=== PATIENT | female | born 1955 | race Asian ===

== ENCOUNTER → 2018-04-26 | Outpatient (REF) | payer OTHER ==
[2018-05-02 15:19] LABS: HPV LOW VOL RFLX Negative (Negative)
== END ==
LOC: M LAB REF 13:24
DX: Z01.419 Encounter for gynecological examination (general) (routine) without abnormal findings (principal)

== ENCOUNTER → 2018-11-24 | Outpatient (CLI) | payer OTHER ==
[2018-11-24 09:50] LABS: ALBUMIN 3.9 GM/DL (3.2-5.2); ALT/SGPT 19 U/L (12-78); BILIRUBIN,TOTAL 0.4 MG/DL (0.2-1.0); BLOOD UREA NITROGEN 15 MG/DL (7-18); CARBON DIOXIDE LEVEL 33 MEQ/L (21-32); CHLORIDE LEVEL 101 MEQ/L (98-107); CREATININE FOR GFR 0.59 MG/DL (0.55-1.30); GLOMERULAR FILTRATION RATE > 60.0 (>45); GLUCOSE, FASTING 89 MG/DL (70-100); POTASSIUM SERUM 3.8 MEQ/L (3.5-5.1); SODIUM LEVEL 138 MEQ/L (136-145); TOTAL PROTEIN 7.2 GM/DL (6.4-8.2)
== END ==
LOC: M LAB 08:34
PROVIDERS: ATTEND Physician Assistant
DX: E87.6 Hypokalemia (principal)

== ENCOUNTER 2019-10-20 14:17 | Emergency (ER) | payer OTHER ==
[~2019-10-20] VITALS: Ht 162.6 cm; Wt 59.0 kg
[2019-10-20] MEDS ORDERED: ENAL5TAB7 (14:24)
[2019-10-20] MEDS ORDERED: DOXY20TA4 (14:24)
[2019-10-20] MEDS ORDERED: OMEP-218 (14:24)
[2019-10-20 15:56] LABS: BASO # 0.1 10^3/uL (0.0-0.2); EOS % 0.5 % (0.0-3.0); HEMATOCRIT 35.2 % (36.0-47.0); LYMPH # 2.2 10^3/uL (1.5-5.0); LYMPH % 37.2 % (24.0-44.0); MEAN CORPUSCULAR HEMOGLOBIN 31.9 pg (27.0-33.0); MEAN CORPUSCULAR HGB CONC 34.1 g/dl (32.0-36.5); MEAN CORPUSCULAR VOLUME 93.6 fl (80.0-96.0); MONO # 0.4 10^3/uL (0.0-0.8); MONO % 6.7 % (0.0-5.0); NEUTROPHILS # 3.3 10^3/uL (1.5-8.5); NEUTROPHILS % 54.4 % (36.0-66.0); PLATELET COUNT, AUTOMATED 308 10^3/uL (150-450); RED BLOOD COUNT 3.76 10^6/uL (4.00-5.40)
--- NOTE | 2019-10-20 16:18 | REP ---
Clinical: Epigastric pain. Comparison: None . Technique: PA and lateral. Findings: The mediastinum and cardiac silhouette are normal. The lung pritchard are clear and without acute consolidation, effusion, or pneumothorax. The skeletal structures are intact and normal. Impression: 1. No acute cardiopulmonary process. Electronically Signed by Michael Morley MD 10/20/2019 04:09 P
[2019-10-20 16:24] LABS: ALBUMIN 3.9 GM/DL (3.2-5.2); ALT/SGPT 22 U/L (12-78); AMYLASE 47 U/L (25-115); BILIRUBIN,DIRECT 0.1 MG/DL (0.0-0.2); BILIRUBIN,TOTAL 0.6 MG/DL (0.2-1.0); BLOOD UREA NITROGEN 11 MG/DL (7-18); CALCIUM LEVEL 8.9 MG/DL (8.8-10.2); CARBON DIOXIDE LEVEL 30 MEQ/L (21-32); CHLORIDE LEVEL 100 MEQ/L (98-107); CK-MB VALUE MASS 1.6 NG/ML (<3.6); CPK CREATINE PHOSPHOKINASE 100 U/L (26-192); CREATININE FOR GFR 0.58 MG/DL (0.55-1.30); GLOMERULAR FILTRATION RATE > 60.0 (>45); GLUCOSE, FASTING 93 MG/DL (70-100); LIPASE 107 U/L (73-393); POTASSIUM SERUM 3.1 MEQ/L (3.5-5.1); SODIUM LEVEL 137 MEQ/L (136-145); TOTAL PROTEIN 6.9 GM/DL (6.4-8.2); TROPONIN I 0.03 NG/ML (< 0.10)
[2019-10-20] MEDS ORDERED: CARA1TAB6 PO (17:35)
--- NOTE | 2019-10-20 17:35 | REPVR ---
PROCEDURE INFORMATION: Exam: US Limited Retroperitoneal, Aorta. Exam date and time: 10/20/2019 5:13 PM Age: 64 years old Clinical indication: Abdominal pain; Epigastric; Additional info: Epigastric pain, radiates to back TECHNIQUE: Imaging protocol: Real-time ultrasound of the retroperitoneum with image documentation. Exam focused on the aorta. COMPARISON: No relevant prior studies available. FINDINGS: Aorta: Mild atherosclerotic changes in the abdominal aorta. Proximal aorta measures 2 x 2.8 cm, mid aorta 1.8 x 1.9 cm, and distal aorta 1.5 x 1.7 cm. No aneurysm demonstrated. Common iliac arteries: Right common iliac artery measures 1 x 1 cm. Left iliac artery measures 1.1 x 1.1 cm. IMPRESSION: Mild atherosclerotic changes in the abdominal aorta. No aneurysm demonstrated. Electronically signed by: David Bhandari On 10/20/2019 17:34:59 PM
[2019-10-20 17:57] VITALS: BP 134/72
--- NOTE | 2019-10-20 19:22 | ECGEPIP ---
[facility] - ED Test Date: 2019-10-20 Pat Name: PEDRO MARTIN Department: Room: - Gender: Female Cabinet Installer: saundra : 1955 Requested By: Abbey Boyd Order Number: [id number] Reading MD: Abbey Boyd Measurements Intervals [place] Rate: 74 P: 54 WI: 140 QRS: 46 QRSD: 93 T: 51 QT: 391 QTc: 436 Interpretive Statements SINUS RHYTHM NONSPECIFIC ST T WAVE CHANGES NO PRIOR ECG FOR COMPARISON Electronically Signed on 10-20-2019 19:21:58 EST by Abbey Boyd
== END 2019-10-20 17:59 | disposition home or self-care (01) ==
LOC: M ED 14:17
DX: R10.13 Epigastric pain (principal); K21.9 Gastro-esophageal reflux disease without esophagitis; Z88.6 Allergy status to analgesic agent

== ENCOUNTER → 2019-11-13 | Outpatient (CLI) | payer OTHER ==
[~2019-11-13] MED LIST: CARA1TAB6 PO; DOXY20TA4; E-Z-GAS II EFFERVESCENT PACKET (SODIUM BICARB./CITRIC ACID/SIMETHICONE) As Ordered ONE; E-Z-HD 98% w/w 340GM SUSP BTL As Ordered ONE; E-Z-PAQUE 96% w/w SUSP 176GM BTL As Ordered ONE; ENAL5TAB7; OMEP-218
--- NOTE | 2019-11-13 18:00 | REP ---
Examination Requested: Esophagram Barium Swallow Reason For Exam/Comment: Dysphasia Esophagram: The procedure was performed INOCENCIO Soriano, under the direct supervision of Dr. Whaley. The images were reviewed with Dr. Whaley. A single PA chest x-ray is submitted as a internal auditor film. The superior mediastinal structures are midline. The heart size is within normal limits. The lungs are clear. Liquid barium and gas producing granules were given in the erect position as well as liquid barium in the prone oblique position, in order to perform a double contrast esophagram examination. Oral and pharyngeal stages of the examination were unremarkable. Esophageal transport is efficient and there is no esophagitis, stricture, or mucosal ring noted. There is no hiatal hernia noted. Gastroesophageal reflux was visualized to the level of the ced. Impression: 1. Gastroesophageal reflux to the level of the ced. 0.3 minutes of fluoroscopy time was utilized for this procedure. Some fluoroscopic images are performed with last image hold technology. These images require no additional radiation. Reviewed by INOCENCIO Carrera 11/13/2019 12:23 P Electronically Signed by Reynaldo Whaley MD 11/13/2019 05:51 P
== END ==
LOC: M RAD 07:38
PROVIDERS: ATTEND Nurse Practitioner
DX: K21.9 Gastro-esophageal reflux disease without esophagitis (principal)

== ENCOUNTER 2019-11-28 07:21 | Day surgery (SDC) | payer OTHER ==
[~2019-11-28] VITALS: Ht 162.6 cm; Wt 55.8 kg
[~2019-11-28 07:21] MED LIST changes: +COLA100C5 PO; -E-Z-GAS II EFFERVESCENT PACKET (SODIUM BICARB./CITRIC ACID/SIMETHICONE) As Ordered ONE; -E-Z-HD 98% w/w 340GM SUSP BTL As Ordered ONE; -E-Z-PAQUE 96% w/w SUSP 176GM BTL As Ordered ONE; +LIDOCAINE 2% INJ 100 MG/5 ML SDV (FOR ANES.) As Ordered ONE; +NO ITAB PO; +NS 1,000 ML IV ONE; +propofoL 200 MG/20 ML VIAL As Ordered ONE
--- NOTE | 2019-11-28 09:18 | ROOR ---
Patient Name: Lilian Blair Procedure Date: 11/28/2019 8:45 AM Date of : 1955 Age: 64 Room: [facility] Gender: Female Note Status: Finalized Procedure: Upper GI endoscopy Indications: Suspected gastro-esophageal reflux disease Providers: DO Guerita Dawson MD: MAKAYLA Gray Requesting Provider: Medicines: Propofol per Anesthesia Complications: No immediate complications. Procedure: Pre-Anesthesia Assessment: - Prior to the procedure, a History and Physical was performed, and patient medications and allergies were reviewed. The patient is competent. The risks and benefits of the procedure and the sedation options and risks were discussed with the patient. All questions were answered and informed consent was obtained. Patient identification and proposed procedure were verified by the physician, the nurse, the anesthesiologist and the strain technician in the endoscopy suite. Mental Status Examination: alert and oriented. Airway Examination: normal oropharyngeal airway and neck mobility. Respiratory Examination: clear to auscultation. CV Examination: normal. Prophylactic Antibiotics: The patient does not require prophylactic antibiotics. Prior Anticoagulants: The patient has taken no previous anticoagulant or antiplatelet agents. ASA Grade Assessment: II - A patient with mild systemic disease. After reviewing the risks and benefits, the patient was deemed in satisfactory condition to undergo the procedure. The anesthesia plan was to use monitored anesthesia care (MAC). Immediately prior to administration of medications, the patient was re-assessed for adequacy to receive sedatives. The heart rate, respiratory rate, oxygen saturations, blood pressure, adequacy of pulmonary ventilation, and response to care were monitored throughout the procedure. The physical status of the patient was re-assessed after the procedure. The Endoscope was introduced through the mouth, and advanced to the second part of duodenum. The upper GI endoscopy was accomplished without difficulty. The patient tolerated the procedure well. Findings: Scattered moderate inflammation characterized by adherent blood, congestion (edema), erosions and linear erosions was found in the prepyloric region of the stomach. Biopsies were taken with a cold forceps for Helicobacter pylori testing. Estimated blood loss was minimal. The exam was otherwise without abnormality. Impression: - Gastritis. Biopsied. - The examination was otherwise normal. Recommendation: - Patient has a contact number available for emergencies. The signs and symptoms of potential delayed complications were discussed with the patient. Return to normal activities tomorrow. Written discharge instructions were provided to the patient. - Await pathology results. - Return to my office in 1 week. Marco Abraham DO 11/28/2019 9:18:30 AM Electronically signed by Marco Abraham DO Number of Addenda: 0 Note Initiated On: 11/28/2019 8:45 AM Estimated Blood Loss: Estimated blood loss was minimal.
--- NOTE | 2019-11-28 09:21 | ROOR ---
Patient Name: Lilian Blair Procedure Date: 11/28/2019 8:45 AM Date of : 1955 Age: 64 Room: [facility] Gender: Female Note Status: Finalized Procedure: Colonoscopy Indications: Screening for colorectal malignant neoplasm Providers: DO Guerita Dawson MD: MAKAYLA Gray Requesting Provider: Medicines: Propofol per Anesthesia Complications: No immediate complications. Procedure: Pre-Anesthesia Assessment: - Prior to the procedure, a History and Physical was performed, and patient medications and allergies were reviewed. The patient is competent. The risks and benefits of the procedure and the sedation options and risks were discussed with the patient. All questions were answered and informed consent was obtained. Patient identification and proposed procedure were verified by the physician, the nurse, the anesthesiologist and the electronic lab technician in the endoscopy suite. Mental Status Examination: alert and oriented. Airway Examination: normal oropharyngeal airway and neck mobility. Respiratory Examination: clear to auscultation. CV Examination: normal. Prophylactic Antibiotics: The patient does not require prophylactic antibiotics. Prior Anticoagulants: The patient has taken no previous anticoagulant or antiplatelet agents. ASA Grade Assessment: II - A patient with mild systemic disease. After reviewing the risks and benefits, the patient was deemed in satisfactory condition to undergo the procedure. The anesthesia plan was to use monitored anesthesia care (MAC). Immediately prior to administration of medications, the patient was re-assessed for adequacy to receive sedatives. The heart rate, respiratory rate, oxygen saturations, blood pressure, adequacy of pulmonary ventilation, and response to care were monitored throughout the procedure. The physical status of the patient was re-assessed after the procedure. The Colonoscope was introduced through the anus and advanced to the cecum, identified by appendiceal orifice and ileocecal valve. The colonoscopy was performed without difficulty. The patient tolerated the procedure well. Findings: Hemorrhoids were found on perianal exam. Non-bleeding internal hemorrhoids were found during retroflexion. The hemorrhoids were Grade I (internal hemorrhoids that do not prolapse). The exam was otherwise without abnormality on direct and retroflexion views. Impression: - Hemorrhoids found on perianal exam. - Non-bleeding internal hemorrhoids. - The examination was otherwise normal on direct and retroflexion views. - No specimens collected. Recommendation: - Patient has a contact number available for emergencies. The signs and symptoms of potential delayed complications were discussed with the patient. Return to normal activities tomorrow. Written discharge instructions were provided to the patient. - Repeat colonoscopy in 5-10 years for screening purposes. - Return to my office PRN. Marco Abraham DO 11/28/2019 9:21:29 AM Electronically signed by Marco Abraham DO Number of Addenda: 0 Note Initiated On: 11/28/2019 8:45 AM Estimated Blood Loss: Estimated blood loss: none.
[2019-11-28 09:55] VITALS: BP 146/74
== END 2019-11-28 09:57 | disposition home or self-care (01) ==
LOC: M OPP 07:21
PROVIDERS: ATTEND Surgery
DX: Z12.11 Encounter for screening for malignant neoplasm of colon (principal); K21.9 Gastro-esophageal reflux disease without esophagitis; R10.13 Epigastric pain; R13.10 Dysphagia, unspecified; K29.70 Gastritis, unspecified, without bleeding; D13.1 Benign neoplasm of stomach; K64.0 First degree hemorrhoids; I10 Essential (primary) hypertension; Z88.6 Allergy status to analgesic agent; Z79.899 Other long term (current) drug therapy; Z87.891 Personal history of nicotine dependence

== ENCOUNTER → 2020-06-06 | Outpatient (CLI) | payer OTHER ==
[~2020-06-06] MED LIST changes: -LIDOCAINE 2% INJ 100 MG/5 ML SDV (FOR ANES.) As Ordered ONE; -NS 1,000 ML IV ONE; -propofoL 200 MG/20 ML VIAL As Ordered ONE
[2020-06-06 07:25] LABS: BASO # 0.1 10^3/uL (0.0-0.2); BASO % 0.9 % (0.0-1.0); EOS # 0.1 10^3/uL (0.0-0.5); EOS % 1.7 % (0.0-3.0); HEMATOCRIT 38.7 % (36.0-47.0); HEMOGLOBIN 12.8 g/dl (12.0-15.5); LYMPH # 2.3 10^3/uL (1.5-5.0); LYMPH % 44.2 % (24.0-44.0); MEAN CORPUSCULAR HEMOGLOBIN 31.5 pg (27.0-33.0); MEAN CORPUSCULAR HGB CONC 33.1 g/dl (32.0-36.5); MEAN CORPUSCULAR VOLUME 95.3 fl (80.0-96.0); MONO # 0.4 10^3/uL (0.0-0.8); MONO % 7.2 % (0.0-5.0); NEUTROPHILS # 2.4 10^3/uL (1.5-8.5); NEUTROPHILS % 45.6 % (36.0-66.0); PLATELET COUNT, AUTOMATED 296 10^3/uL (150-450); RED BLOOD COUNT 4.06 10^6/uL (4.00-5.40); WHITE BLOOD COUNT 5.3 10^3/uL (4.0-10.0)
[2020-06-06 07:59] LABS: ALBUMIN 3.7 GM/DL (3.2-5.2); ALT/SGPT 20 U/L (12-78); BILIRUBIN,TOTAL 0.5 MG/DL (0.2-1.0); BLOOD UREA NITROGEN 16 MG/DL (7-18); CALCIUM LEVEL 8.7 MG/DL (8.8-10.2); CARBON DIOXIDE LEVEL 28 MEQ/L (21-32); CHLORIDE LEVEL 109 MEQ/L (98-107); CHOLESTEROL LEVEL 179 MG/DL (<200); CHOLESTEROL RISK RATIO 3.086 (<5); GLOMERULAR FILTRATION RATE > 60.0 (>45); GLUCOSE, FASTING 97 MG/DL (70-100); HDL CHOLESTEROL 58 MG/DL (>40); LDL CHOLESTEROL 107 MG/DL (<100); NON-HDL-C 121 MG/DL; POTASSIUM SERUM 3.6 MEQ/L (3.5-5.1); SODIUM LEVEL 143 MEQ/L (136-145); TOTAL PROTEIN 6.9 GM/DL (6.4-8.2); TRIGLYCERIDES LEVEL 72 MG/DL (<150)
== END ==
LOC: M LAB 06:44
PROVIDERS: ATTEND Physician Assistant
DX: K21.9 Gastro-esophageal reflux disease without esophagitis (principal); I10 Essential (primary) hypertension

== ENCOUNTER → 2020-07-03 | Outpatient (REF) | payer OTHER | LOC: M LAB REF 12:55 | PROVIDERS: ATTEND Nurse Practitioner Family | DX: R31.9 Hematuria, unspecified (principal) ==

== ENCOUNTER 2020-10-25 18:37 | Emergency (ER) | payer OTHER ==
[~2020-10-25] VITALS: Ht 162.6 cm; Wt 60.1 kg
[2020-10-25 18:37] VITALS: BP 143/73
--- OUTSIDE RECORDS SUMMARY | 2020-10-25 18:42 | CCD | Continuity of Care Document ---
Author Author Ziggy ALLEN Organization Unknown Address [address] [place] [address] Phone [phone] Problems Active Problems Provider Date Gastroesophageal reflux disease Iliana Allen FNP Onset: 10/22/2020 Essential hypertension Iliana Allen FNP Onset: Social History Type Date Description Comments Sex Unknown Tobacco Use Start: Unknown Never Used Smokeless Tobacco ETOH Use Denies alcohol use Recreational Drug Use Denies Drug Use Tobacco Use Start: Unknown End: Unknown Patient is a former smoker prior 1/2 ppd x 7-8 years. Quit at age 32 Smoking Status Reviewed: 10/22/20 Patient is a former smoker pr ior 1/2 ppd x 7-8 years. Quit at age 32 Exercise Type/Frequency Exercises regularly Sun Exposure Use less than 15 SPF Seat Belt/Car Seat Always uses seat belt Smoke Alarms Yes Smoke Alarms Carbon Monoxide Detector: Yes Allergies, Adverse Reactions, Alerts Active Allergies Reaction Severity Comments Date Aspirin makes her bleed 06/17/2016 Medications Active Medications SIG Qnty Indications Ordering Provide r Date Azithromycin 250mg Tablets 2 tabs today then one tab daily for 4 days 6tabs H66.93 Iliana Allen F [employer]ER AND [employer]ER 10/22/2020 Levocetirizine Dihydrochloride 5mg Tablets 1 tab by mouth every evening 90tabs H66.93 Dao Allen FNP 10/22/2020 Neomycin/Polymyxin/Hydrocortisone (Otic) [id number] Solution apply to ears everyday as needed itching 10ml Iliana Allen FNP 06/17/2020 Blue-Emu Super Strength Cream as needed for muscle aches and cramping Alanna Whaley M.D. 12/25/2018 Fluocinonide 0.05% Ointment apply twice a day as needed to rash on hands 15gm L20.9 Iliana Allen FNP 12/17/[address] 1 by mouth qd 240caps Alanna Whaley M.D. Systane Preservative Free 0.4-0.3% Solution 3 gtts. three times a day as needed Unkno wn Mucinex 600mg Tablets ER 12HR 1 by mouth twice a day as needed Unknown Gaviscon Extra Strength 160-105mg Chewtabs as needed heartburn Unknown 00 Sucralfate 1gm Tablets take 1 tablet by mouth before lunch and at bedtime, may also take prior to dinner if eating a known acid fermenting cellars receiver 270tabs Iliana Allen FNP 000 Stool Softener 100mg Capsules take one capsule by mouth three times a day as needed to soften stool Unknown Doxycycline Hyclate 20mg Tablets daily for gum disease 90tabs Iliana Allen FNP Enalapril Maleate/Hydrochlorothiazide 5-12.5mg Tablets daily 90tabs Alanna Whaley M.D. Preparation H 1-0.25-14.4-15% Cream prn Unknown Centrum Silver Tablets 1 by mouth every day Unknown Silver Sulfadiazine 1% Cream use on affected area as needed 50gm Iliana Allen FNP Benzoyl Peroxide-Erythromycin 5-3% Gel apply to acne at bedtime, wash off in the morning 46.600gm Iliana Allen FNP Immunizations CPT Code Status Date Vaccine Lot # [id number] Given 02/26/2020 Pneumococcal Vaccine [id number] Given 07/06/2019 Boostrix (Tdap) Tetnus, Diphtheria Toxoids & Acellular Pertussis [id number] Given 06/14/2019 Influenza Virus Vaccine, Quadrivalent,age 3 and up,multidose vial [id number] Given 06/26/2018 Influenza Virus Vaccine, Quadrivalent,age 3 and up,multidose vial [id number] 73723 Given 06/20/2017 Influenza Vaccination [id number] 14194 Given 06/17/2016 Influenza Vaccination [id number] U-Td Given 01/29/2005 Td(Adult),Unspecified Vital Signs Date Vital Result Comment 10/22/2020 9:55am BP Systolic 162 mmHg BP Diastolic 89 mmHg BP Systolic Recheck 128 mmHg BP Diastolic Recheck 79 mmHg Heart Rate 81 /min Body Temperature 97.3 F Respiratory Rate 16 /min Height 64 inches 5'4" Weight 125.38 lb O2 % BldC Oximetry 98 % Peak Expiratory Flow Rate 337 Estimated Peak Flow Rate [place] Body Weight 120 lb BMI (Body Mass Index) 21.5 kg/m2 07/03/2020 10:37am BP Systolic 140 mmHg BP Diastolic 79 mmHg Heart Rate 73 /min Body Temperature 97.5 F Respiratory Rate 16 /min Height 64 inches 5'4" Weight 127.38 lb Peak Expiratory Flow Rate 337 Estimated Peak Flow Rate [place] Body Weight 120 lb BMI (Body Mass Index) 21.9 kg/m2 Results Test Acquired Date Facility Test Result H/L Range Note Laboratory test finding 07/03/[facility] [phone] Urine Culture FULL REPORT IN L <SEE NOTE> Normal 1 Ua Routine 07/03/2020 [facility] [address] [place], [place] [id number] [phone] Ua Specific [place] 1.00 Ua PH 5 Ua Color yellow Ua Appera clear Ua WBC trace Ua Protein neg. Ua Glucose neg. Ua Ketones neg. Ua Bilirubin neg. Ua Urobilinogen neg. Ua Nitrite neg. Ua Occult Blood trace CBC With Differential 06/06/2020 [facility] [place] [address] [phone] White Blood Count 5.3 10 Normal 4.0-10.0 Red Blood Count 4.06 10 Normal 4.00-5.40 Hemoglobin 12.8 g/dL Normal 12.0-15.5 Hematocrit 38.7 % Normal 36.0-47.0 Mean Corpuscular Volume 95.3 fl Normal 80.0-96.0 Mean Corpuscular Hemoglobin 31.5 pg Normal 27.0-33.0 Mean Corpuscular HGB Conc 33.1 g/dL Normal 32.0-36.5 Red Cell Distribution Width 12.2 % Normal 11.5-14.5 Platelet Count, Automated 296 10 Normal 150-450 Neutrophils % 45.6 % Normal 36.0-66.0 Lymph % 44.2 % High 24.0-44.0 Mora % 7.2 % High 0.0-5.0 Eos % 1.7 % Normal 0.0-3.0 Baso % 0.9 % Normal 0.0-1.0 Immature Granulocyte % 0.4 % Normal 0-3.0 Nucleated Red Blood Cell % 0.0 % Normal 0-0 Neutrophils # 2.4 10 Normal 1.5-8.5 Lymph # 2.3 10 Normal 1.5-5.0 Mora # 0.4 10 Normal 0.0-0.8 Eos # 0.1 10 Normal 0.0-0.5 Baso # 0.1 10 Normal 0.0-0.2 Comprehensive Metabolic Profil 06/06/[address] [place] [address] [phone] Glucose, Fasting 97 mg/dL Normal 70-100 Blood Urea Nitrogen 16 mg/dL Normal 7-18 Creatinine For GFR 0.60 mg/dL Normal 0.55-1.30 Glomerular Filtration Rate > 60.0 Normal >45 2 Sodium Level 143 mEq/L Normal 136-145 Potassium Serum 3.6 mEq/L Normal 3.5-5.1 Chloride Level 109 mEq/L High 98-107 Carbon Dioxide Level 28 mEq/L Normal 21-32 Anion Gap 6 mEq/L Low 8-16 Calcium Level 8.7 mg/dL Low 8.8-10.2 Ast/Sgot 13 U/L Normal 7-37 Alt/SGPT 20 U/L Normal 12-78 Alkaline Phosphatase 59 U/L Normal 45-117 Bilirubin,Total 0.5 mg/dL Normal 0.2-1.0 Total Protein 6.9 GM/DL Normal 6.4-8.2 Albumin 3.7 GM/DL Normal 3.2-5.2 Albumin/Globulin Ratio 1.2 Normal 1.2-2.2 Lipid Panel 06/06/2020 [place] [address] [phone] Triglycerides Level 72 mg/dL Normal <150 Cholesterol Level 179 mg/dL Normal <200 HDL Cholesterol 58 mg/dL Normal >40 LDL Cholesterol 107 mg/dL High <100 Non-HDL-C 121 mg/dL Normal Cholesterol Risk Ratio 3.086 Normal <5 Laboratory test finding 06/06/2020 [place] [address] [phone] Thyroid Stimulating Hormone 2.670 uIU/ML Normal 0. 358-3.740 1 FULL REPORT IN LAB NOTES (eC W and Medent). NO GROWTH 2 Units are mL/min/1.73 m2 Chronic Kidney Disease Staging per NKF: Stage I & II GFR >=60 Normal to Mildly Decreased Stage III GFR 30-59 Moderately Decreased Stage IV GFR 15-29 Severely Decreased Stage V GFR <15 Very Little GFR Left ESRD GFR <15 on CO FOUND[employer]ATE[employer] OFFICER Procedures Date Code Description Status 03/03/2020 [id number] Mammogram Completed Medical Devices Description No Information Available Encounters Type Date Location Provider Dx Diagnosis Office Visit 10/22/2020 10:00a Main Office Iliana Allen, NETWORK SECURITY CONSULTANT H66.9 3 Otitis media, unspecified, bilateral Office Visit 07/03/2020 9:45a Main Office WalterachIliana, NETWORK SECURITY CONSULTANT R31.9 Hematuria, unspecified K64.9 Unspecified hemorrhoids Office Visit 06/17/2020 10:45a Main Office Iliana Allen, NETWORK SECURITY CONSULTANT Z00.0 0 Encntr for general adult medical exam w/o abnormal findings K21.9 Gastro-esophageal reflux dis ease without esophagitis I10 Essential (primary) hyperten ana M25.511 Pain in right shoulder Assessments Date Code Description Provider 10/22/2020 H66.93 Otitis media, unspecified, bilat eral Iliana Allen, NETWORK SECURITY CONSULTANT 07/03/2020 R31.9 Hematuria, unspecified Pleskach, Iliana, NETWORK SECURITY CONSULTANT 07/03/2020 K64.9 Unspecified hemorrhoids Iliana Allen, NETWORK SECURITY CONSULTANT 06/17/2020 Z00.00 Encounter for genera l adult medical examination without abnormal findings Iliana Allen, NETWORK SECURITY CONSULTANT 06/17/2020 K21.9 Gastro-esophageal reflux disease without esophagitis Iliana Allen, NETWORK SECURITY CONSULTANT 06/17/2020 I10 Essential (primary) hypertension Iliana Allen, NETWORK SECURITY CONSULTANT 06/17/2020 M25.511 Pain in right shoulder Iliana Allen FNP Plan of Treatment Future Appointment(s):* 12/17/2020 9:45 am - Alanna Whaley M.D. at Main Office 10/22/2020 - Iliana Allen FNP* H66.93 Otitis media, unspecified, bilateral* New Medication:* Azithromycin 250 mg - 2 tabs today then one tab daily for 4 days * Levocetirizine Dihydrochloride 5 mg - 1 tab by mouth every evening Functional Status Functional Condition Comment Date Status Partial upper dentures Active Independent with all ADL's Activ e Independent with all IADL's Acti ve Bifocal glasses Active Mental Status Mental Condition Comment Date Status None Active Referrals Description No Information Available
--- OUTSIDE RECORDS SUMMARY | 2020-10-25 18:43 | CCD ---
Author Author [facility] Organization [facility] Address Unknown Phone Unavailable Care Team Providers Care Promotional Representative Name Role Phone Scbreonnao, M Rafaela PA Unavailable Unavailable Scordo, M Rafaela PA Unavailable Unavailable Scordo, M Rafaela PA Unavailable Unavailable Scordo, M Rafaela PA Unavailable Unavailable Scordo, M Rafaela PA Unavailable Unavailable Scordo, M Rafaela PA Unavailable Unavailable Scordo, M Rafaela PA Unavailable Unavailable Scordo, M Rafaela PA Unavailable Unavailable Scordo, M Rafaela PA Unavailable Unavailable Scordo, M Rafaela PA Unavailable Unavailable Scordo, M Rafaela PA Unavailable Unavailable Scordo, M Rafaela PA Unavailable Unavailable Scordo, M Rafaela PA Unavailable Unavailable Scordo, M Rafaela PA Unavailable Unavailable Scordo, M Rafaela PA Unavailable Unavailable Scordo, M Rafaela PA Unavailable Unavailable Scordo, M Rafaela PA Unavailable Unavailable Scordo, M Rafaela PA Unavailable Unavailable Scordo, M Rafaela PA Unavailable Unavailable Scordo, M Rafaela PA Unavailable Unavailable Scordo, M Rafaela PA Unavailable Unavailable Scordo, M Rafaela PA Unavailable Unavailable Scordo, M Rafaela PA Unavailable Unavailable Scordo, M Rafaela PA Unavailable Unavailable Scordo, M Rafaela PA Unavailable Unavailable Scordo, M Rafaela PA Unavailable Unavailable Scordo, M Rafaela PA Unavailable Unavailable Scordo, M Rafaela PA Unavailable Unavailable Scordo, M Rafaela PA Unavailable Unavailable Scordo, M Rafaela PA Unavailable Unavailable Scordo, M Rafaela PA Unavailable Unavailable Scordo, M Rafaela PA Unavailable Unavailable Scordo, M Rafaela PA Unavailable Unavailable Scordo, M Rafaela PA Unavailable Unavailable Scordo, M Rafaela PA Unavailable Unavailable Scordo, M Rafaela PA Unavailable Unavailable Scordo, M Rafaela PA Unavailable Unavailable Scordo, M Rafaela PA Unavailable Unavailable Scordo, M Rafaela PA Unavailable Unavailable Scordo, M Arfaela PA Unavailable Unavailable Scordo, M Rafaela PA Unavailable Unavailable Scordo, M Rafaela PA Unavailable Unavailable Pleskach, Iliana VOYAGE MANAGEMENT SYSTEM OPERATOR Unavailable Unavailable Pleskach, Iliana VOYAGE MANAGEMENT SYSTEM OPERATOR Unavailable Unavailable Pleskach, Iliana VOYAGE MANAGEMENT SYSTEM OPERATOR Unavailable Unavailable Pleskach, Iliana VOYAGE MANAGEMENT SYSTEM OPERATOR Unavailable Unavailable Pleskach, Iliana VOYAGE MANAGEMENT SYSTEM OPERATOR Unavailable Unavailable Pleskach, Iliana VOYAGE MANAGEMENT SYSTEM OPERATOR Unavailable Unavailable Pleskach, Iliana VOYAGE MANAGEMENT SYSTEM OPERATOR Unavailable Unavailable Pleskach, Iliana VOYAGE MANAGEMENT SYSTEM OPERATOR Unavailable Unavailable Pleskach, Iliana VOYAGE MANAGEMENT SYSTEM OPERATOR Unavailable Unavailable Pleskach, Iliana VOYAGE MANAGEMENT SYSTEM OPERATOR Unavailable Unavailable Pleskach, Iliana VOYAGE MANAGEMENT SYSTEM OPERATOR Unavailable Unavailable Pleskach, Iliana VOYAGE MANAGEMENT SYSTEM OPERATOR Unavailable Unavailable Pleskach, Iliana VOYAGE MANAGEMENT SYSTEM OPERATOR Unavailable Unavailable Pleskach, Iliana VOYAGE MANAGEMENT SYSTEM OPERATOR Unavailable Unavailable Pleskach, Iliana VOYAGE MANAGEMENT SYSTEM OPERATOR Unavailable Unavailable Pleskach, Iliana VOYAGE MANAGEMENT SYSTEM OPERATOR Unavailable Unavailable Pleskach, Iliana VOYAGE MANAGEMENT SYSTEM OPERATOR Unavailable Unavailable Pleskach, Iliana VOYAGE MANAGEMENT SYSTEM OPERATOR Unavailable Unavailable Pleskach, Iliana VOYAGE MANAGEMENT SYSTEM OPERATOR Unavailable Unavailable Pleskach, Iliana VOYAGE MANAGEMENT SYSTEM OPERATOR Unavailable Unavailable Pleskach, Iliana VOYAGE MANAGEMENT SYSTEM OPERATOR Unavailable Unavailable Pleskach, Iliana VOYAGE MANAGEMENT SYSTEM OPERATOR Unavailable Unavailable Pleskach, Iliana VOYAGE MANAGEMENT SYSTEM OPERATOR Unavailable Unavailable Pleskach, Iliana VOYAGE MANAGEMENT SYSTEM OPERATOR Unavailable Unavailable Pleskach, Iliana VOYAGE MANAGEMENT SYSTEM OPERATOR Unavailable Unavailable Pleskach, Iliana VOYAGE MANAGEMENT SYSTEM OPERATOR Unavailable Unavailable Pleskach, Iliana VOYAGE MANAGEMENT SYSTEM OPERATOR Unavailable Unavailable Pleskach, Iliana VOYAGE MANAGEMENT SYSTEM OPERATOR Unavailable Unavailable Pleskach, Iliana VOYAGE MANAGEMENT SYSTEM OPERATOR Unavailable Unavailable Pleskach, Iliana VOYAGE MANAGEMENT SYSTEM OPERATOR Unavailable Unavailable Scordo, M Rafaela PA Unavailable Unavailable Scordo, M Rafaela PA Unavailable Unavailable Scordo, M Rafaela PA Unavailable Unavailable Scordo, M Rafaela PA Unavailable Unavailable Scordo, M Rafaela PA Unavailable Unavailable Scordo, M Rafaela PA Unavailable Unavailable Scordo, M Rafaela PA Unavailable Unavailable Scordo, M Rafaela PA Unavailable Unavailable Scordo, M Rafaela PA Unavailable Unavailable Scordo, M Rafaela PA Unavailable Unavailable Scordo, M Rafaela PA Unavailable Unavailable Scordo, M Rafaela PA Unavailable Unavailable Scordo, M Rafaela PA Unavailable Unavailable Scordo, M Rafaela PA Unavailable Unavailable Scordo, M Rafaela PA Unavailable Unavailable Scordo, M Rafaela PA Unavailable Unavailable Scordo, M Rafaela PA Unavailable Unavailable Scordo, M Rafaela PA Unavailable Unavailable Scordo, M Rafaela PA Unavailable Unavailable Scordo, M Rafaela PA Unavailable Unavailable Scordo, M Rafaela PA Unavailable Unavailable Scordo, M Rafaela PA Unavailable Unavailable Scordo, M Rafaela PA Unavailable Unavailable Scordo, M Rafaela PA Unavailable Unavailable Scordo, M Rafaela PA Unavailable Unavailable Scordo, M Rafaela PA Unavailable Unavailable Scordo, M Rafaela PA Unavailable Unavailable Scordo, M Rafaela PA Unavailable Unavailable Scordo, M Rafaela PA Unavailable Unavailable Scordo, M Rafaela PA Unavailable Unavailable Scordo, M Rafaela PA Unavailable Unavailable Scordo, M Rafaela PA Unavailable Unavailable Scordo, M Rafaela PA Unavailable Unavailable Scordo, M Rafaela PA Unavailable Unavailable Scordo, M Rafaela PA Unavailable Unavailable Scordo, M Rafaela PA Unavailable Unavailable Scordo, M Rafaela PA Unavailable Unavailable Scordo, M Rafaela PA Unavailable Unavailable Scordo, M Rafaela PA Unavailable Unavailable Scordo, M Rafaela PA Unavailable Unavailable Scordo, M Rafaela PA Unavailable Unavailable Scordo, M Rafaela PA Unavailable Unavailable Re-disclosure Warning The records that you are about to access may contain information from federally-assisted alcohol or drug abuse programs. If such information is present, then the following federally mandated warning applies: This information has been disclosed to you from records protected by federal confidentiality rules (42 CFR part 2). The federal rules prohibit you from making any further disclosure of this information unless further disclosure is expressly permitted by the written consent of the person to whom it pertains or as otherwise permitted by 42 CFR part 2. A general authorization for the release of medical or other information is NOT sufficient for this purpose. The Federal rules restrict any use of the information to criminally investigate or prosecute any alcohol or drug abuse patient.The records that you are about to access may contain highly sensitive health information, the redisclosure of which is protected by Article 27-F of the [facility] Public Health law. If you continue you may have access to information: Regarding HIV / AIDS; Provided by facilities licensed or operated by the [facility] Office of Mental Health; or Provided by the [facility] Office for People With Developmental Disabilities. If such information is present, then the following [facility] mandated warning applies: This information has been disclosed to you from confidential records which are protected by state law. State law prohibits you from making any further disclosure of this information without the specific written consent of the person to whom it pertains, or as otherwise permitted by law. Any unauthorized further disclosure in violation of state law may result in a fine or correction sentence or both. A general authorization for the release of medical or other information is NOT sufficient authorization for further disc losure. Family History Family Member Name Family Member Gender Family Member Status Date o f Status Description Data Source(s) Unknown Unknown Problem [facility] (Adv[employer]) Unknown Unknown Problem [facility] (Lázaro arndt [employer]) Unknown Female Problem [facility] ([facility] Encounters Encounter Providers Location Date Indications Data Source(s ) Outpatient Attender: Iliana Allen [facility] Main Office 10/22/2020 0 9:00:00 AM EST [facility] ([facility] Outpatient Attender: Iliana Allen [facility] Main Office 07/03/2020 0 9:45:00 AM EDT [facility] ([facility] Outpatient Attender: Iliana Allen [facility] Main Office 06/17/2020 1 0:45:00 AM EDT [facility] Outpatient Attender: Rafaela BENAVIDES 02/29/2020 10:23:00 AM EDT SCREEN [facility] SCREEN Outpatient Attender: Rafaela BENAVIDES Main Office 02/18/2020 10:00:00 AM EDT [facility] ([facility] Outpatient Attender: Rafaela BENAVIDES 01/24/2020 01: 00:00 PM EDT SCREEN, DENSE Z12.31 [facility] SCREEN, DENSE Z12.31 Outpatient 10/31/2019 08:03:00 AM EST [facility] Outpatient Attender: Rafaela BENAVIDES Main Office 10/26/2019 09:15:00 AM EST [facility] ([facility] Immunizations Vaccine Date Status Description Data Source(s) INFLUENZA VIRUS VACCINE QUADRIVALENT 2020-21 (6 MOS AN D UP) 05/20/2020 12:00:00 AM EDT completed [facility] VARICELLA-ZOSTER VIRUS GLYCOPROTEIN E,REC/AS01B ADJUVA NT/PF 04/27/2020 12:00:00 AM EDT completed [facility] pneumococcal polysaccharide PPV23 02/26/2020 07:24:00 AM EDT comple mar [facility] ([facility] PNEUMOCOCCAL 23-VALENT POLYSACCHARIDE VACCINE 02/26/2020 12: 00:00 AM EDT completed [facility] Medications Medication Brand Name Start Date Product Form Dose Route Admi nistrative Instructions Pharmacy Instructions Status Indications Reaction Description Data Source(s) levocetirizine dihydrochloride 5 MG Oral Tablet Levocetirizi ne Dihydrochloride 10/22/2020 12:00:00 AM EST ORAL active [facility] Azithromycin 250 MG Oral Tablet Azithromycin 10/22/2020 12:00:00 AM EST active [facility] 250 mg 10/22/2020 12:00:00 AM EST tablet 6 TAKE TWO TABLETS BY MOUTH AT ONCE ON THE FIRST DAY THEN TAKE ONE DAILY THEREAFTER TAKE TWO TABLETS BY MOUTH AT ONCE ON THE FIRST DAY THEN TAKE ONE DAILY THEREAFTER SOLD: 10/22/2020 [facility] 0.05 % 06/18/2020 12:00:00 AM EDT ointment 15 APPLY TWO TIMES A DAY TO RASH ON HANDS NEEDED APPLY TWO TIMES A DAY TO RASH ON HANDS NEEDED SOLD: 06/19/2020 [facility] 20 mg 06/18/2020 12:00:00 AM EDT tablet 90 TAKE ONE TABLET BY MOUTH DAILY FOR GUM DISEASE TAKE ONE TABLET BY MOUTH DAILY FOR GUM DISEASE SOLD: 020 [facility] 20 mg 06/18/2020 12:00:00 AM EDT tablet 90 TAKE ONE TABLET BY MOUTH DAILY FOR GUM DISEASE TAKE ONE TABLET BY MOUTH DAILY FOR GUM DISEASE SOLD: 021 [facility] 3.5-10,000-1 mg/mL-unit/mL-% 06/17/2020 12:00:00 AM EDT solu tion 10 APPLY TO EARS EVERYDAY NEEDED FOR ITCHING APPLY TO EARS EVERYDAY NEEDED FOR ITC ERICK SOLD: 06/19/2020 [facility] 3-5 % 06/17/2020 12:00:00 AM EDT gel 46 APPLY TO ACNE AT BEDTIME, WASH OFF IN THE MORNING APPLY TO ACNE AT BEDTIME, WASH OFF IN THE MORNING SOLD : 06/19/2020 [facility] 3-5 % 06/17/2020 12:00:00 AM EDT gel 46 APPLY TO ACNE AT BEDTIME, WASH OFF IN THE MORNING APPLY TO ACNE AT BEDTIME, WASH OFF IN THE MORNING SOLD : 09/04/2020 [facility] 3-5 % 06/17/2020 12:00:00 AM EDT gel 46 APPLY TO ACNE AT BEDTIME, WASH OFF IN THE MORNING APPLY TO ACNE AT BEDTIME, WASH OFF IN THE MORNING SOLD : 10/17/2020 [facility] Hydrocortisone 10 MG/ML / Neomycin 3.5 M G/ML / Polymyxin B 52746 UNT/ML Otic Solution Neomycin/Polymyxin/Hydrocortisone (Otic) 06/17/2020 12:00:00 AM EDT active [facility] ([facility] . UNIT 05/20/2020 12:00:00 AM EDT Injectable 1 IN JECT INJECT SOLD: 05/23/2020 [facility] . UNIT 04/27/2020 12:00:00 AM EDT Injectable 1 DIRECTED DIRECTED SOLD: 04/27/2020 [facility] 300 mg 03/27/2020 12:00:00 AM EDT capsule 14 TAKE ONE CAPSULE BY MOUTH TWICE A DAY FOR 7 DAYS TAKE ONE CAPSULE BY MOUTH TWICE A DAY FOR 7 DAYS SOLD: 03/27/2020 [facility] . UNIT 02/26/2020 12:00:00 AM EDT Injectable 1 DIRECTED DIRECTED SOLD: 02/26/2020 [facility] 20 mg 12/27/2019 12:00:00 AM EDT capsule,delayed release (DR/EC) 180 TAKE ONE CAPSULE BY MOUTH TWICE A DAY TAKE ONE CAPSULE BY MOUTH TWICE A DAY SOLD: 12/27/2019 [facility] 20 mg 12/27/2019 12:00:00 AM EDT capsule,delayed release (DR/EC) 180 TAKE ONE CAPSULE BY MOUTH TWICE A DAY TAKE ONE CAPSULE BY MOUTH TWICE A DAY SOLD: 09/21/2020 [facility] 20 mg 12/27/2019 12:00:00 AM EDT capsule,delayed release (DR/EC) 180 TAKE ONE CAPSULE BY MOUTH TWICE A DAY TAKE ONE CAPSULE BY MOUTH TWICE A DAY SOLD: 03/25/2020 [facility] 5-12.5 mg 12/07/2019 12:00:00 AM EDT tablet 90 TAKE 1 TABLET BY MOUTH ONCE DAILY TAKE 1 TABLET BY MOUTH ONCE DAILY SOLD: 06/19/2020 [facility] 5-12.5 mg 12/07/2019 12:00:00 AM EDT tablet 90 TAKE 1 TABLET BY MOUTH ONCE DAILY TAKE 1 TABLET BY MOUTH ONCE DAILY SOLD: 09/21/2020 [facility] 5-12.5 mg 12/07/2019 12:00:00 AM EDT tablet 90 TAKE 1 TABLET BY MOUTH ONCE DAILY TAKE 1 TABLET BY MOUTH ONCE DAILY SOLD: 03/25/2020 [facility] 5-12.5 mg 12/07/2019 12:00:00 AM EDT tablet 90 TAKE 1 TABLET BY MOUTH ONCE DAILY TAKE 1 TABLET BY MOUTH ONCE DAILY SOLD: 12/07/2019 [facility] 20 mg 12/03/2019 12:00:00 AM EDT capsule,delayed release (DR/EC) 30 TAKE ONE CAPSULE BY MOUTH EVERY MORNING DIRECTED TAKE ONE CAPSULE BY MOUTH EVERY MORNING DIRECTED SOLD: 12/03/2019 [facility] 17.5-3.13-1.6 gram 11/20/2019 12:00:00 AM EDT recon soln 354 USE DIRECTED BY PHYSICIAN USE DIRECTED BY PHYSICIAN SOLD: 11/22/2019 [facility] 1 gram 10/26/2019 12:00:00 AM EST tablet 360 TAKE ONE TABLET BY MOUTH UP TO FOUR TIMES A DAY BEFORE MEALS AND AT BEDTIME TAKE ONE TABLET BY MOUTH UP TO FOUR TIMES A DAY BEFORE MEALS AND AT BEDTIME SOLD: 07/27/2020 [facility] 1 gram 10/26/2019 12:00:00 AM EST tablet 360 TAKE ONE TABLET BY MOUTH UP TO FOUR TIMES A DAY BEFORE MEALS AND AT BEDTIME TAKE ONE TABLET BY MOUTH UP TO FOUR TIMES A DAY BEFORE MEALS AND AT BEDTIME SOLD: 03/25/2020 [facility] 1 gram 10/26/2019 12:00:00 AM EST tablet 360 TAKE ONE TABLET BY MOUTH UP TO FOUR TIMES A DAY BEFORE MEALS AND AT BEDTIME TAKE ONE TABLET BY MOUTH UP TO FOUR TIMES A DAY BEFORE MEALS AND AT BEDTIME SOLD: 10/26/2019 [facility] 1 gram 10/20/2019 12:00:00 AM EST tablet 20 TAKE ONE TABLET BY MOUTH TWICE A DAY TAKE ONE TABLET BY MOUTH TWICE A DAY SOLD: 10/20/2019 [facility] 3-5 % 07/11/2019 12:00:00 AM EDT gel 46 APPLY TO ACNE ONCE DAILY AT BEDTIME, WASH OFF IN THE MORNING APPLY TO ACNE ONCE DAILY AT BEDTIME, WAS H OFF IN THE MORNING SOLD: 10/02/2019 [facility] 3-5 % 07/11/2019 12:00:00 AM EDT gel 46 APPLY TO ACNE ONCE DAILY AT BEDTIME, WASH OFF IN THE MORNING APPLY TO ACNE ONCE DAILY AT BEDTIME, WAS H OFF IN THE MORNING SOLD: 12/03/2019 [facility] 3-5 % 07/11/2019 12:00:00 AM EDT gel 46 APPLY TO ACNE ONCE DAILY AT BEDTIME, WASH OFF IN THE MORNING APPLY TO ACNE ONCE DAILY AT BEDTIME, WAS H OFF IN THE MORNING SOLD: 02/22/2020 [facility] 3-5 % 07/11/2019 12:00:00 AM EDT gel 46 APPLY TO ACNE ONCE DAILY AT BEDTIME, WASH OFF IN THE MORNING APPLY TO ACNE ONCE DAILY AT BEDTIME, WAS H OFF IN THE MORNING SOLD: 04/27/2020 [facility] 5-12.5 mg 07/06/2019 12:00:00 AM EDT tablet 90 TAKE ONE TABLET BY MOUTH EVERY DAY TAKE ONE TABLET BY MOUTH EVERY DAY SOLD: 10/02/2019 [facility] 20 mg 07/06/2019 12:00:00 AM EDT tablet 90 TAKE ONE TABLET BY MOUTH EVERY DAY FOR GUM DISEASE TAKE ONE TABLET BY MOUTH EVERY DAY FOR GUM DISEASE DARIEN [facility] silver sulfadiazine 10 MG/ML Topical Cream [SSD] SILVER SULF ADIAZINE 07/06/2019 12:00:00 AM EDT cream 50 APPLY TO AFFECTED AREA(S) NEEDED APPLY TO AFFECTED AREA(S) NEEDED SOLD: 06/21/2020 [facility] 20 mg 07/06/2019 12:00:00 AM EDT tablet 90 TAKE ONE TABLET BY MOUTH EVERY DAY FOR GUM DISEASE TAKE ONE TABLET BY MOUTH EVERY DAY FOR GUM DISEASE DARIEN [facility] Insurance Providers Payer name Policy type / Coverage type Policy ID Covered democrat ID Covered democrat's relationship to horn Policy Horn Plan Information R [facility] [id number] SP [id number] R O [id number] S [id number] UMR -O/P [id number] 18 [id number] r, Inc Commercial [id number] Self [id number] Commercial [id number] Self [id number] [facility] HEA [id number] S [id number] [facility] [id number] SP [id number] r Commercial [id number] Self [id number] r Commercial [id number] Self [id number] r Commercial [id number] Self [id number] [employer] Commercial [id number] Self [id number] [employer] -O/P [id number] 18 [id number] NOT ASKED UNAVAILABLE UNAVAILA BLE [employer] Commercial [id number] Self [id number] [facility] Self Problems, Conditions, and Diagnoses Code Display Name Description Problem Type Effective Dates Data Source(s) 26632390 Essential hypertension Essential hypertension Problem 10/22/2020 12:00:00 AM EST [facility] ([facility] [id number] Gastroesophageal reflux disease Gastroesophageal reflux disease Problem 10/22/2020 12:00:00 AM EST [facility] ([facility] Surgeries/Procedures Procedure Description Date Indications Data Source(s) Mammogram 03/03/2020 12:00:00 AM EDT M [facility] ([facility] Document: 12/27/17 - Mammo Document: - US Results ID Date Data Source [id number] 07/03/2020 11:22:00 AM EDT [facility] Name Value Range Interpretation Code Description Data Susan rce(s) Supporting Document(s) Bacteria identified in Urine by Culture Laboratory test result [facility] ([facility] FULL REPORT IN LAB NOTES ([facility] and [facility] ). NO GROWTH ID Date Data Source [id number] 07/03/2020 11:20:00 AM EDT [facility] Name Value Range Interpretation Code Description Data Susan rce(s) Supporting Document(s) pH of Urine by Test strip 5 [facility] NT ([facility] Specific gravity of Urine 1.00 [facility] ([facility] Leukocytes [#/area] in Urine sediment by Microscopy hi power field Laboratory test result [facility] Appearance of Urine Laboratory test result [facility] Color of Urine Laboratory test result [facility] Glucose [Presence] in Urine Laboratory test result [facility] Protein [Presence] in Urine by Test strip Laboratory test result [facility] Ketones [Presence] in Urine by Test strip Laboratory test result [facility] Bilirubin.total [Presence] in Urine by Test strip Laboratory test res ult [facility] ([facility] Urobilinogen [Mass/volume] in Urine by Test strip Laboratory test res ult [facility] Hemoglobin [Presence] in Urine by Test strip Laboratory test result [facility] Nitrite [Presence] in Urine by Test strip Laboratory test result [facility] ID Date Data Source [id number] 06/06/2020 06:55:00 AM EDT [facility] ([facility] Name Value Range Interpretation Code Description Data Susan rce(s) Supporting Document(s) Thyrotropin [Units/volume] in Serum or Plasma 2.670 uIU/ML 0.358-3.74 0 [facility] ID Date Data Source [id number] 06/06/2020 06:55:00 AM EDT [facility] Name Value Range Interpretation Code Description Data Susan rce(s) Supporting Document(s) Triglycerides Level 72 mg/dL [facility] Cholesterol Level 179 mg/dL [facility] ([facility] Non-HDL-C 121 mg/dL [facility] LDL Cholesterol 107 mg/dL [facility] HDL Cholesterol 58 mg/dL [facility] Cholesterol Risk Ratio 3.086 [facility] ID Date Data Source [id number] 06/06/2020 06:55:00 AM EDT [facility] Name Value Range Interpretation Code Description Data Susan rce(s) Supporting Document(s) Creatinine For GFR 0.60 mg/dL 0.55-1.30 [facility] Blood Urea Nitrogen 16 mg/dL 7-18 [facility] ([facility] Glucose, Fasting 97 mg/dL 70-100 [facility] Sodium Level 143 meq/L 136-145 [facility] Glomerular Filtration Rate Laboratory test result [facility] <content>Units are mL/min/1.73 m2</content>
<content></content>
<content>Chronic Kidney Disease Staging per NKF:</content>
<content></content>
<content>Stage I & II GFR >=60 Normal to Mildly Decreased</content>
<content>Stage III GFR 30- 59 Moderately Decreased</content>
<content>Stage IV GFR 15-29 Severely Decreased</content>
<content>Stage V GFR <15 Very Little GFR Left</content>
<content>ESRD GFR <15 on WARP KNIT OPERATOR</content>
<content></content> Potassium Serum 3.6 meq/L 3.5-5.1 [facility] Carbon Dioxide Level 28 meq/L 21-32 [facility] ([facility] Chloride Level 109 meq/L 98-107 [facility] Ast/Sgot 13 U/L 7-37 [facility] Anion Gap 6 meq/L 8-16 [facility] Calcium Level 8.7 mg/dL 8.8-10.2 [facility] Alt/SGPT 20 U/L 12-78 [facility] Bilirubin,Total 0.5 mg/dL 0.2-1.0 [facility] Alkaline Phosphatase 59 U/L 45-117 [facility] Total Protein 6.9 GM/DL 6.4-8.2 [facility] Albumin 3.7 GM/DL 3.2-5.2 [facility] Albumin/Globulin Ratio 1.2 1.2-2.2 [facility] ID Date Data Source [id number] 06/06/2020 06:55:00 AM EDT [facility] Name Value Range Interpretation Code Description Data Susan rce(s) Supporting Document(s) White Blood Count 5.3 10 4.0-10.0 [facility] ([facility] Red Blood Count 4.06 10 4.00-5.40 [facility] Hematocrit 38.7 % 36.0-47.0 [facility] ([facility] Mean Corpuscular Volume 95.3 fl 80.0-96.0 M [facility] ([facility] Hemoglobin 12.8 g/dL 12.0-15.5 [facility] ([facility] Mean Corpuscular Hemoglobin 31.5 pg 27.0-33.0 [facility] Mean Corpuscular HGB Conc 33.1 g/dL 32.0-36.5 [facility] Red Cell Distribution Width 12.2 % 11.5-14.5 [facility] Platelet Count, Automated 296 10 150-450 [facility] Neutrophils % 45.6 % 36.0-66.0 [facility] Canadian % 7.2 % 0.0-5.0 [facility] Eos % 1.7 % 0.0-3.0 [facility] Lymph % 44.2 % 24.0-44.0 [facility] Immature Granulocyte % 0.4 % 0-3.0 [facility] Baso % 0.9 % 0.0-1.0 [facility] Nucleated Red Blood Cell % 0.0 % 0-0 [facility] ([facility] Lymph # 2.3 10 1.5-5.0 [facility] Neutrophils # 2.4 10 1.5-8.5 [facility] Canadian # 0.4 10 0.0-0.8 [facility] Baso # 0.1 10 0.0-0.2 [facility] Eos # 0.1 10 0.0-0.5 [facility] ID Date Data Source [id number] 03/04/2020 11:16:00 AM EDT [facility] [address] [address] [phone] NAME SEX PT STATUS ACCOUNT NUMBER [facility] REG REF [id number] ORDERING PHYSICIAN LOCATION MEDICAL RECORD NO. RAFAELA JACK MAMMO [id number] ATTENDING PHYSICIAN DATE OF DATE OF EXAM/TIME RAFAELA RAMOS 1955 02/29/201103 TYPE / EXAM US Breast - Complete Bilat REASON FOR EXAM DENSE BREAST SCREENING BILATERAL ABVS 3D SCREENING ULTRASOUND COMPARISON: Screening mammogram from the same date FINDINGS: No disturbing-appearing cystic or solid mass identified. IMPRESSION: No sonographic evidence of malignancy. Occasional benign type calcifications are seen on mammography. OVERALL FINAL ASSESSMENT OF FINDINGS BI-RADS 2 - Benign findings Reported By Emmanuel Gates MD on 03/04/201115 Signed By Emmanuel Gates MD on 03/04/201116 Date Time CC: Emmanuel Gates MD; RAFAELA JACK Techn: [email or web address] Trans Dt/Tm: Trans by: DT Prt Dt/Tm: : Total DLP = 0.00 mGy-cm : Total Radiation Dose = 0.0000 mSv Lifetime Dose: 0 mSv Name Value Range Interpretation Code Description Data Susan rce(s) Supporting Document(s) ID Date Data Source [id number] 03/04/2020 11:09:00 AM EDT [facility] [address] [place] [address] [phone] NAME SEX PT STATUS ACCOUNT NUMBER PEDRO MARTIN REG REF [id number] ORDERING PHYSICIAN LOCATION MEDICAL RECORD NO. RAFAELA VIDESO [id number] ATTENDING PHYSICIAN DATE OF DATE OF EXAM/TIME RAFAELA RAMOS 1955 02/29/201040 TYPE / EXAM 3D DIG MAMMO SCREEN BILAT REASON FOR EXAM SCREENING LAST CLINICAL BREAST EXAM: 4 weeks ago FIVE YEAR RISK: 2.1% LIFETIME RISK: 6.6% FAMILY HISTORY OF BREAST CARCINOMA: None COMPARISON: January 05, 2019 and July 22, 2015 2D bilateral digital mammogram in the CC and MLO projections was performed with supplemental 3D tomosynthesis of both breasts. FINDINGS: Craniocaudad and oblique lateral views of the breasts were obtained. The breasts are extremely dense, which lowers the sensitivity of mammography. Occasional benign type calcifications are seen bilaterally. There is no dominant mass, suspicious clustered microcalcification or architectural distortion. IMPRESSION: No mammographic evidence of malignancy. Yearly screening recommended. OVERALL FINAL ASSESSMENT OF FINDINGS BI-RADS 2 - Benign findings OVERALL FINAL ASSESSMENT OF THE BREAST COMPOSITION Breast Density Classification: D Description: The breasts are extremely dense, which lowers the sensitivity of mammography. This mammogram was read with the assistance of [employer], an FDA-approved computer-aided detection system for mammography. Reported By Emmanuel Gates MD on 03/04/20 1109 Signed By Emmanuel Gates MD on 03/04/20 1113 Date Time CC: Emmanuel Gates MD; RAFAELA JACK Techn: [email or web address] Trans Dt/Tm: Trans by: DT Prt Dt/Tm: : Total DLP = 0.00 mGy-cm : Total Radiation Dose = 0.0000 mSv Lifetime Dose: 0 mSv Name Value Range Interpretation Code Description Data Susan rce(s) Supporting Document(s) ID Date Data Source [id number] 10/20/2019 03:47:00 PM EST [facility] Name Value Range Interpretation Code Description Data Susan rce(s) Supporting Document(s) Amylase [Enzymatic activity/volume] in Serum or Plasma 47 U/L 25- 115 [facility] Lipoprotein lipase [Enzymatic activity/volume] in Serum or P lasma 107 U/L 73-393 [facility] ID Date Data Source [id number] 10/20/2019 03:47:00 PM EST [facility] Name Value Range Interpretation Code Description Data Susan e(s) Supporting Document(s) Blood Urea Nitrogen 11 mg/dL 7-18 [facility] Glucose, Fasting 93 mg/dL 70-100 [facility] Creatinine For GFR 0.58 mg/dL 0.55-1.30 [facility] Sodium Level 137 meq/L 136-145 [facility] Glomerular Filtration Rate Laboratory test result [facility] <content>Units are mL/min/1.73 m2</content>
<content></content>
<content>Chronic Kidney Disease Staging per [facility]:</content>
<content></content>
<content>Stage I & II GFR >=60 Normal to Mildly Decreased</content>
<content>Stage III GFR 30-59 Moderately Decreased</content>
<content>Stage IV GFR 15-29 Severely Decreased</content>
<content>Stage V GFR <15 Very Little GFR Left</content>
<content>ESRD GFR <15 on [employer]</content>
<content></content> Carbon Dioxide Level 30 meq/L 21-32 [facility] Potassium Serum 3.1 meq/L 3.5-5.1 [facility] Chloride Level 100 meq/L 98-107 [facility] Anion Gap 7 meq/L 8-16 [facility] Calcium Level 8.9 mg/dL 8.8-10.2 [facility] ID Date Data Source [id number] 10/20/2019 03:47:00 PM EST [facility] Name Value Range Interpretation Code Description Data Susan e(s) Supporting Document(s) Alt/SGPT 22 U/L 12-78 [facility] Alkaline Phosphatase 54 U/L 45-117 [facility] Ast/Sgot 14 U/L 7-37 [facility] Bilirubin,Total 0.6 mg/dL 0.2-1.0 [facility] Bilirubin,Direct 0.1 mg/dL 0.0-0.2 [facility] Total Protein 6.9 GM/DL 6.4-8.2 [facility] Albumin/Globulin Ratio 1.30 1.00-1.93 [facility] Albumin 3.9 GM/DL 3.2-5.2 [facility] ID Date Data Source [id number] 10/20/2019 03:47:00 PM EST [facility] Name Value Range Interpretation Code Description Data [facility](s) Supporting Document(s) CPK Creatine Phosphokinase 100 U/L 26-192 [facility] CK-MB Value Mass 1.6 ng/mL [facility] Troponin I 0.03 ng/mL [facility] <content>Troponin I Reference Interval f or Siemens Hydes LOCI:</content>
<content></content>
<content>99th Percentile= 0.00-0.045 ng/ml</content>
<content></content>
<content>Risk Stratification:</content>
<content><= 0.10 ng/ml Decreased Risk for Adverse Clinical</content>
<content>Events.</content>
<content>0.10-1.50 ng/ml Increased Risk for Adverse Clinical</content>
<content>Events. Evaluation of additional</content>
<content>criterion and/or repeat testing in 2-6</content>
<content>hours is suggested to rule out myocardial</content>
<content>damage.</content>
<content>>= 1.50 ng/ml Indicative of Myocardial Injury.</content>
<content></content> MB/CK Relative Index 1.60 [facility] <content>DIAGNOSIS CRITERIA</content>
<content>MMB ng/ml Relative Index (RI)</content>
<content>NON-AMI < or = 5 N/A</content>
<content>HONEYCUTT ZONE > 5 < or = 4</content>
<content>AMI > 5 > 4</content>
<content></content> ID Date Data Source [id number] 10/20/2019 03:47:00 PM EST [facility] Name Value Range Interpretation Code Description Data Susan rce(s) Supporting Document(s) White Blood Count 6.0 10 4.0-10.0 [facility] Red Blood Count 3.76 10 4.00-5.40 [facility] Mean Corpuscular Volume 93.6 fl 80.0-96.0 M [facility] Hemoglobin 12.0 g/dL 12.0-15.5 [facility] Hematocrit 35.2 % 36.0-47.0 [facility] Mean Corpuscular Hemoglobin 31.9 pg 27.0-33.0 [facility] Mean Corpuscular HGB Conc 34.1 g/dL 32.0-36.5 [facility] Red Cell Distribution Width 11.8 % 11.5-14.5 [facility] Neutrophils % 54.4 % 36.0-66.0 [facility] Platelet Count, Automated 308 10 150-450 [facility] Canadian % 6.7 % 0.0-5.0 [facility] Eos % 0.5 % 0.0-3.0 [facility] Lymph % 37.2 % 24.0-44.0 [facility] Immature Granulocyte % 0.2 % 0-3.0 [facility] Baso % 1.0 % 0.0-1.0 [facility] Nucleated Red Blood Cell % 0.0 % 0-0 [facility] Neutrophils # 3.3 10 1.5-8.5 [facility] Canadian # 0.4 10 0.0-0.8 [facility] Lymph # 2.2 10 1.5-5.0 [facility] Baso # 0.1 10 0.0-0.2 [facility] Eos # 0.0 10 0.0-0.5 [facility] ID Date Data Source [id number] 10/20/2019 03:46:00 PM EST [facility] Name Value Range Interpretation Code Description Data Susan rce(s) Supporting Document(s) Appearance, Urine RFX Laboratory test result [facility] Color, Urine RFX Laboratory test result [facility] Specific [place] Ur Auto RFX 1.003 1.002-1.035 [facility] PH,Urine RFX 6.0 units 5.0-9.0 [facility] Ketone, Urine Auto RFX Laboratory test result [facility] Glucose, Urine (Ua) Auto RFX Laboratory test result [facility] Protein, Urine Auto RFX Laboratory test result [facility] Nitrite, Urine Auto RFX Laboratory test result [facility] Bilirubin, Urine Auto RFX Laboratory test result [facility] Urobilinogen, Urine Auto RFX 0.2 mg/dL 0.0-2.0 [facility] Leukocyte Esterase Ur Auto RFX Laboratory test result [facility] Blood, Urine Blood RFX Laboratory test result [facility] RBC, Urine Auto RFX 4 /HPF 0-3 [facility] WBC, Urine Auto RFX 1 /HPF 0-3 [facility] Bacteria, Urine Auto RFX Laboratory test result [facility] Hyaline Cast, Urine Auto RFX 0 /LPF 0-1 [facility] Squam Epithelial Cell Ur Aurfx 0 /HPF 0-6 [facility] Procedure Social History Code Duration Value Status Description Data Source(s ) Smoking 10/22/2020 12:00:00 AM EST Patient is a former smoker completed Patient is a former smoker [facility] Vital Signs ID Date Data Source UNK Name Value Range Interpretation Code Description Data Source(s) Body mass index (BMI) [Ratio] 21.5 kg/m2 21.5 k g/m2 [facility] Energy body weight 120 [lb_av] 120 [lb_av] [facility] Oxygen saturation in Arterial blood by Pulse oximetry 98 % 98 % [facility] Body weight 125.38 [lb_av] 125.38 [lb_av] [facility] Body height 64 [in_i] 64 [in_i] [facility] 5'4" Respiratory rate 16 /min 16 /min [facility] Body temperature 97.3 [degF] 97.3 [degF] [facility] Heart rate 81 /min 81 /min [facility] Diastolic blood pressure 79 mm[Hg] 79 mm[Hg] [facility] Systolic blood pressure 128 mm[Hg] 128 mm[Hg] M [facility] Diastolic blood pressure 89 mm[Hg] 89 mm[Hg] [facility] Systolic blood pressure 162 mm[Hg] 162 mm[Hg] [facility] Body mass index (BMI) [Ratio] 21.9 kg/m2 21.9 k g/m2 [facility] Energy body weight 120 [lb_av] 120 [lb_av] [facility] Body weight 127.38 [lb_av] 127.38 [lb_av] [facility] Body height 64 [in_i] 64 [in_i] [facility] 5'4" Respiratory rate 16 /min 16 /min [facility] Body temperature 97.5 [degF] 97.5 [degF] [facility] Heart rate 73 /min 73 /min [facility] Diastolic blood pressure 79 mm[Hg] 79 mm[Hg] [facility] Systolic blood pressure 140 mm[Hg] 140 mm[Hg] M [facility] Body mass index (BMI) [Ratio] 22.1 kg/m2 22.1 k g/m2 [facility] Energy body weight 120 [lb_av] 120 [lb_av] [facility] Body weight 128.50 [lb_av] 128.50 [lb_av] [facility] Body height 64 [in_i] 64 [in_i] [facility] 5'4" Respiratory rate 15 /min 15 /min [facility] Body temperature 97.5 [degF] 97.5 [degF] [facility] Heart rate 63 /min 63 /min [facility] Diastolic blood pressure 63 mm[Hg] 63 mm[Hg] [facility] Systolic blood pressure 136 mm[Hg] 136 mm[Hg] M [facility] Body mass index (BMI) [Ratio] 22.1 kg/m2 22.1 k g/m2 [facility] Energy body weight 120 [lb_av] 120 [lb_av] [facility] Oxygen saturation in Arterial blood by Pulse oximetry 98 % 98 % [facility] Body weight 129.00 [lb_av] 129.00 [lb_av] [facility] Body height 64 [in_i] 64 [in_i] [facility] 5'4" Respiratory rate 20 /min 20 /min [facility] Body temperature 97.9 [degF] 97.9 [degF] [facility] Heart rate 88 /min 88 /min [facility] Diastolic blood pressure 70 mm[Hg] 70 mm[Hg] [facility] Systolic blood pressure 130 mm[Hg] 130 mm[Hg] [facility] Diastolic blood pressure 74 mm[Hg] 74 mm[Hg] [facility] Systolic blood pressure 141 mm[Hg] 141 mm[Hg] [facility] Body mass index (BMI) [Ratio] 21.5 kg/m2 21.5 k g/m2 [facility] Energy body weight 120 [lb_av] 120 [lb_av] [facility] Oxygen saturation in Arterial blood by Pulse oximetry 98 % 98 % [facility] Body weight 125.38 [lb_av] 125.38 [lb_av] [facility] Body height 64 [in_i] 64 [in_i] [facility] 5'4" Respiratory rate 17 /min 17 /min [facility] Body temperature 98.4 [degF] 98.4 [degF] [facility] Heart rate 77 /min 77 /min [facility] Diastolic blood pressure 75 mm[Hg] 75 mm[Hg] [facility] ra Systolic blood pressure 125 mm[Hg] 125 mm[Hg] [facility] ra
[2020-10-25] MEDS ORDERED: AZIT-12 PO (18:47)
[2020-10-25] MEDS ORDERED: ERYTGEL TOP (18:52)
[2020-10-25] MEDS ORDERED: NEOM1SOL19 AS (18:52)
--- OUTSIDE RECORDS SUMMARY | 2020-10-25 19:35 | CCD ---
Author Author [facility] Organization [facility] Address Unknown Phone Unavailable Care Team Providers Care Last Scourer Name Role Phone Scbreonnao, M Rafaela PA [...] M Rafaela PA Unavailable Unavailable Pleskach, Iliana BUSINESS OFFICE ASSISTANT Unavailable Unavailable Pleskach, Iliana BUSINESS OFFICE ASSISTANT Unavailable Unavailable Pleskach, Iliana BUSINESS OFFICE ASSISTANT Unavailable Unavailable Pleskach, Iliana BUSINESS OFFICE ASSISTANT Unavailable Unavailable Pleskach, Iliana BUSINESS OFFICE ASSISTANT Unavailable Unavailable Pleskach, Iliana BUSINESS OFFICE ASSISTANT Unavailable Unavailable Pleskach, Iliana BUSINESS OFFICE ASSISTANT Unavailable Unavailable Pleskach, Iliana BUSINESS OFFICE ASSISTANT Unavailable Unavailable Pleskach, Iliana BUSINESS OFFICE ASSISTANT Unavailable Unavailable Pleskach, Iliana BUSINESS OFFICE ASSISTANT Unavailable Unavailable Pleskach, Iliana BUSINESS OFFICE ASSISTANT Unavailable Unavailable Pleskach, Iliana BUSINESS OFFICE ASSISTANT Unavailable Unavailable Pleskach, Iliana BUSINESS OFFICE ASSISTANT Unavailable Unavailable Pleskach, Iliana BUSINESS OFFICE ASSISTANT Unavailable Unavailable Pleskach, Iliana BUSINESS OFFICE ASSISTANT Unavailable Unavailable Pleskach, Iliana BUSINESS OFFICE ASSISTANT Unavailable Unavailable Pleskach, Iliana BUSINESS OFFICE ASSISTANT Unavailable Unavailable Pleskach, Iliana BUSINESS OFFICE ASSISTANT Unavailable Unavailable Pleskach, Iliana BUSINESS OFFICE ASSISTANT Unavailable Unavailable Pleskach, Iliana BUSINESS OFFICE ASSISTANT Unavailable Unavailable Pleskach, Iliana BUSINESS OFFICE ASSISTANT Unavailable Unavailable Pleskach, Iliana BUSINESS OFFICE ASSISTANT Unavailable Unavailable Pleskach, Iliana BUSINESS OFFICE ASSISTANT Unavailable Unavailable Pleskach, Iliana BUSINESS OFFICE ASSISTANT Unavailable Unavailable Pleskach, Iliana BUSINESS OFFICE ASSISTANT Unavailable Unavailable Pleskach, Iliana BUSINESS OFFICE ASSISTANT Unavailable Unavailable Pleskach, Iliana BUSINESS OFFICE ASSISTANT Unavailable Unavailable Pleskach, Iliana BUSINESS OFFICE ASSISTANT Unavailable Unavailable Pleskach, Iliana BUSINESS OFFICE ASSISTANT Unavailable Unavailable Pleskach, Iliana BUSINESS OFFICE ASSISTANT Unavailable Unavailable Scordo, M Rafaela PA Unavailable [...] is protected by Article 27-F of the [facility] Public Health law. If you continue you may have access to information: Regarding HIV / AIDS; Provided by facilities licensed or operated by the [facility] Office of Mental Health; or Provided by the [facility] Office for People With Developmental Disabilities. If such information is present, then the following [facility] mandated warning applies: This information has been [...] law may result in a fine or half-way sentence or both. A general authorization for the release of medical or other information is NOT sufficient authorization for further disc losure. Family History Family Member Name Family Member Gender Family Member Status Date o f Status Description Data Source(s) Unknown Unknown Problem [facility] (Advanc ed SUPERVISOR IRRIGATION) Unknown Unknown Problem [facility] (Lázaro arndt SUPERVISOR IRRIGATION) Unknown Female Problem [facility] ([facility] Encounters Encounter Providers Location Date Indications Data Source(s ) Outpatient Attender: Iliana Allen [facility] Main Office 10/22/2020 0 9:00:00 AM EST [facility] ([facility] Outpatient Attender: Iliana Allen [facility] Main Office 07/03/2020 0 9:45:00 AM EDT [facility] ([facility] Outpatient Attender: Iliana Allen [facility] Main Office 06/17/2020 1 0:45:00 AM EDT [facility] Outpatient Attender: Rafaela BENAVIDES 02/29/2020 10:23:00 AM EDT SCREEN [facility] SCREEN Outpatient Attender: Rafaela BENAVIDES Main Office 02/18/2020 10:00:00 AM EDT [facility] ([facility] Outpatient Attender: Rafaela BENAVIDES 01/24/2020 01: 00:00 PM EDT SCREEN, DENSE Z12.31 [facility] SCREEN, DENSE Z12.31 Outpatient 10/31/2019 08:03:00 AM [...] Neomycin 3.5 M G/ML / Polymyxin B 67115 UNT/ML Otic Solution Neomycin/Polymyxin/Hydrocortisone (Otic) 06/17/2020 12:00:00 [...] type / Coverage type Policy ID Covered republican ID Covered republican's relationship to horn Policy Horn Plan Information R [facility] [id number] SP [id number] R O [id number] S [id number] UMR -O/P [id number] 18 [id number] r, Inc Commercial [id number] Self [id number] [facility] Commercial [id number] Self [id number] [facility] [id number] S [id number] [facility] [id number] SP [id number] r Commercial [id number] Self [id number] r Commercial [id number] Self [id number] r Commercial [id number] Self [id number] [employer] [id number] Self [id number] [employer] -O/P [id number] 18 [id number] NOT ASKED UNAVAILABLE UNAVAILA BLE [employer] Commercial [id number] [facility] [id number] [facility] Self Problems, Conditions, and Diagnoses Code Display Name Description Problem Type Effective Dates Data Source(s) 52572495 Essential hypertension Essential hypertension Problem 10/22/2020 12:00:00 AM EST [facility] ([facility] [id number] Gastroesophageal reflux disease Gastroesophageal reflux disease Problem 10/22/2020 12:00:00 AM EST [facility] ([facility] Surgeries/Procedures Procedure Description Date Indications Data Source(s) Mammogram 03/03/2020 12:00:00 AM EDT M [facility] ([facility] Document: 12/27/17 - Mammo Document: - US Results ID Date Data Source [id number] 07/03/2020 11:22:00 AM EDT [facility] ([facility] Name Value Range Interpretation Code Description Data Susan rce(s) Supporting Document(s) Bacteria identified in Urine by Culture Laboratory test result [facility] ([facility] FULL REPORT IN LAB NOTES (e[facility] and [facility] ). NO GROWTH ID Date Data Source [id number] 07/03/2020 11:20:00 AM EDT [facility] ([facility] [...] [facility] ID Date Data Source [id number] 06/06/2020 06:55:00 AM EDT [facility] ([facility] Name Value Range Interpretation Code Description Data Susan rce(s) Supporting Document(s) Thyrotropin [Units/volume] in Serum or Plasma 2.670 uIU/ML 0.358-3.74 0 [facility] ID Date Data Source [id number] 06/06/2020 06:55:00 AM EDT [facility] ([facility] [...] [facility] ID Date Data Source [id number] 06/06/2020 06:55:00 AM EDT [facility] ([facility] [...] Filtration Rate Laboratory test result [facility] ([facility] <content>Units are mL/min/1.73 m2</content>
<content></content>
<content>Chronic Kidney Disease Staging per NKF:</content>
<content></content>
<content>Stage I & II GFR >=60 Normal to Mildly Decreased</content>
<content>Stage III GFR 30- 59 Moderately Decreased</content>
<content>Stage IV GFR 15-29 Severely Decreased</content>
<content>Stage V GFR <15 Very Little GFR Left</content>
<content>ESRD GFR <15 on MEDIA PLANNER / BUYER</content>
<content></content> Potassium Serum 3.6 meq/L 3.5-5.1 [facility] [...] [facility] ID Date Data Source [id number] 06/06/2020 06:55:00 AM EDT [facility] ([facility] [...] Cell Distribution Width 12.2 % 11.5-14.5 [facility] Platelet Count, Automated 296 10 150-450 [facility] Neutrophils % 45.6 % 36.0-66.0 [facility] [place] % 7.2 % 0.0-5.0 [facility] (Alanna lu [...] 10 1.5-8.5 [facility] [place] # 0.4 10 0.0-0.8 [facility] Baso # 0.1 10 0.0-0.2 [facility] Eos # 0.1 10 0.0-0.5 [facility] ID Date Data Source [id number] 03/04/2020 11:16:00 AM EDT [facility] [address] [place] [address] [phone] NAME SEX PT STATUS ACCOUNT NUMBER PEDRO MARTIN REG REF [id number] ORDERING PHYSICIAN LOCATION MEDICAL RECORD NO. RAFAELA JACK MAMMO [id number] ATTENDING PHYSICIAN DATE OF DATE OF EXAM/TIME [...] rce(s) Supporting Document(s) ID Date Data Source [id number] 03/04/2020 11:09:00 AM EDT [facility] [address] [place] [address] [phone] NAME SEX PT STATUS ACCOUNT NUMBER PEDRO MARTIN REG REF [id number] ORDERING PHYSICIAN LOCATION MEDICAL RECORD NO. RAFAELA VIDESO [id number] ATTENDING PHYSICIAN DATE OF DATE OF EXAM/TIME [...] mammogram was read with the assistance of [employer], an FDA-approved computer-aided detection system for mammography. [...] rce(s) Supporting Document(s) ID Date Data Source [id number] 10/20/2019 03:47:00 PM EST [facility] ([facility] Name Value Range Interpretation Code Description Data Susan rce(s) Supporting Document(s) Amylase [Enzymatic activity/volume] in Serum or Plasma 47 U/L 25- 115 [facility] Lipoprotein lipase [Enzymatic activity/volume] in Serum or P lasma 107 U/L 73-393 [facility] ID Date Data Source [id number] 10/20/2019 03:47:00 PM EST [facility] ([facility] [...] Little GFR Left</content>
<content>ESRD GFR <15 on MEDIA PLANNER / BUYER</content>
<content></content> Carbon Dioxide Level 30 meq/L 21-32 [facility] ([facility] Potassium Serum 3.1 meq/L 3.5-5.1 [facility] Chloride Level 100 meq/L 98-107 [facility] Anion Gap 7 meq/L 8-16 [facility] Calcium Level 8.9 mg/dL 8.8-10.2 [facility] ID Date Data Source [id number] 10/20/2019 03:47:00 PM EST [facility] ([facility]aley [...] [facility] ID Date Data Source [id number] 10/20/2019 03:47:00 PM EST [facility] Name Value Range Interpretation Code Description Data [facility](s) Supporting Document(s) CPK Creatine Phosphokinase 100 U/L 26-192 [facility] CK-MB Value Mass 1.6 ng/mL [facility] Troponin I 0.03 ng/mL [facility] <content>Troponin I Reference Interval f or Siemens [place] LOCI:</content>
<content></content>
<content>99th Percentile= 0.00-0.045 ng/ml</content>
<content></content>
[...] > 4</content>
<content></content> ID Date Data Source [id number] 10/20/2019 03:47:00 PM EST [facility] ([facility]aley [...] 10 150-450 [facility] [place] % 6.7 % 0.0-5.0 [facility] (Alanna lu [...] 10 1.5-8.5 [facility] [place] # 0.4 10 0.0-0.8 [facility] Lymph # 2.2 10 1.5-5.0 [facility] Baso # 0.1 10 0.0-0.2 [facility] Eos # 0.0 10 0.0-0.5 [facility] ID Date Data Source [id number] 10/20/2019 03:46:00 PM EST [facility] Name Value Range Interpretation Code Description Data Susan rce(s) Supporting Document(s) Appearance, Urine RFX Laboratory test result [facility] Color, Urine RFX Laboratory test result [facility] Specific Nichols Ur Auto RFX 1.003 1.002-1.035 [facility] PH,Urine RFX 6.0 units 5.0-9.0 [facility] Ketone, Urine Auto RFX Laboratory test result [facility] Glucose, Urine (Ua) Auto RFX Laboratory test result [facility] Protein, Urine Auto RFX Laboratory test result [facility] Nitrite, Urine Auto RFX Laboratory [...] k g/m2 [facility] [place] body weight 120 [lb_av] 120 [lb_av] MED[facility] [...] k g/m2 [facility] [place] body weight 120 [lb_av] 120 [lb_av] MEDEN [...] k g/m2 [facility] [place] body weight 120 [lb_av] 120 [lb_av] MEDEN [...] k g/m2 [facility] [place] body weight 120 [lb_av] 120 [lb_av] MED[facility] [...] k g/m2 [facility] [place] body weight 120 [lb_av] 120 [lb_av] [facility] [...]
[2020-10-25] MEDS ORDERED: FLON27.5 NARES (19:40)
== END 2020-10-25 19:46 | disposition home or self-care (01) ==
LOC: M ED 18:37
DX: H93.11 Tinnitus, right ear (principal); I10 Essential (primary) hypertension; K21.9 Gastro-esophageal reflux disease without esophagitis; Z79.899 Other long term (current) drug therapy; Z88.8 Allergy status to other drugs, medicaments and biological substances

== ENCOUNTER → 2021-06-16 | Outpatient (CLI) | payer OTHER ==
[~2021-06-16] MED LIST changes: +AZIT-12 PO; +ERYTGEL TOP; +FLON27.5 NARES; +NEOM1SOL19 AS
[2021-06-16 12:06] LABS: HEMOGLOBIN A1c 5.3 %
[2021-06-16 12:39] LABS: ALBUMIN 3.8 GM/DL (3.2-5.2); ALT/SGPT 25 U/L (12-78); BILIRUBIN,TOTAL 0.3 MG/DL (0.2-1.0); BLOOD UREA NITROGEN 17 MG/DL (7-18); CALCIUM LEVEL 9.3 MG/DL (8.8-10.2); CARBON DIOXIDE LEVEL 29 MEQ/L (21-32); CHLORIDE LEVEL 107 MEQ/L (98-107); CHOLESTEROL LEVEL 175 MG/DL (<200); CHOLESTEROL RISK RATIO 2.916 (<5); CREATININE FOR GFR 0.58 MG/DL (0.55-1.30); GLOMERULAR FILTRATION RATE > 60.0 (>45); GLUCOSE, FASTING 105 MG/DL (70-100); HDL CHOLESTEROL 60 MG/DL (>40); LDL CHOLESTEROL 96 MG/DL (<100); NON-HDL-C 115 MG/DL; POTASSIUM SERUM 3.8 MEQ/L (3.5-5.1); SODIUM LEVEL 140 MEQ/L (136-145); TOTAL PROTEIN 6.9 GM/DL (6.4-8.2); TRIGLYCERIDES LEVEL 97 MG/DL (<150)
== END ==
LOC: M LAB 10:44
PROVIDERS: ATTEND Nurse Practitioner Family
DX: R73.01 Impaired fasting glucose (principal); I10 Essential (primary) hypertension

== ENCOUNTER 2021-10-27 03:00 | Emergency (ER) | payer OTHER ==
[~2021-10-27] VITALS: Ht 162.6 cm; Wt 57.7 kg
[~2021-10-27 03:00] MED LIST changes: +ENAL5TAB36; -ENAL5TAB7; +OMEP-173; -OMEP-218
[2021-10-27 03:01] VITALS: BP 146/79
[2021-10-27 03:42] LABS: APPEARANCE, URINE CLEAR (CLEAR); BACTERIA, URINE AUTO 1+ (NEGATIVE); BILIRUBIN, URINE AUTO NEGATIVE (NEGATIVE); BLOOD, URINE BLOOD 3+ (NEGATIVE); COLOR, URINE YELLOW (YELLOW); GLUCOSE, URINE (UA) AUTO NEGATIVE (NEGATIVE); KETONE, URINE AUTO NEGATIVE (NEGATIVE); LEUKOCYTE ESTERASE, URINE AUTO 3+ (NEGATIVE); NITRITE, URINE AUTO POSITIVE (NEGATIVE); PROTEIN, URINE AUTO 2+ mg/dL (NEGATIVE); RBC, URINE AUTO TNTC /HPF (0-3); SPECIFIC GRAVITY URINE AUTO 1.018 (1.002-1.035); SQUAMOUS EPITHELIAL CELL UR AU 2 /HPF (0-6); UROBILINOGEN, URINE AUTO 0.2 mg/dL (0.0-2.0); WBC, URINE AUTO TNTC /HPF (0-3)
[2021-10-27] MEDS ORDERED: PHENAZOPYRIDINE 100 MG TAB PO ONE (03:55)
[2021-10-27] MEDS ORDERED: NITROFURANTOIN (MACROBID) 100 MG CAP PO ONE (03:55)
[2021-10-27] MEDS ORDERED: MACR100C43 PO (03:57)
[2021-10-27] MEDS ORDERED: PYRI1TAB5 PO (03:57)
== END 2021-10-27 04:24 | disposition home or self-care (01) ==
LOC: M ED 03:00
DX: N30.90 Cystitis, unspecified without hematuria (principal); K21.9 Gastro-esophageal reflux disease without esophagitis; Z88.8 Allergy status to other drugs, medicaments and biological substances; Z79.899 Other long term (current) drug therapy

== ENCOUNTER 2021-11-01 10:02 | Emergency (ER) | payer OTHER ==
[~2021-11-01] VITALS: Ht 162.6 cm; Wt 56.8 kg
[~2021-11-01 10:02] MED LIST changes: +MACR100C43 PO; +PYRI1TAB5 PO
[2021-11-01] MEDS ORDERED: PYRI1TAB5 PO (11:29)
[2021-11-01] MEDS ORDERED: FOSFOMYCIN TROMETHAMINE 3 GM POWDER PACKET (MONUROL) PO ONE (11:35)
[2021-11-01 11:59] VITALS: BP 134/74
== END 2021-11-01 12:39 | disposition home or self-care (01) ==
LOC: M ED 10:02
DX: N30.91 Cystitis, unspecified with hematuria (principal); I10 Essential (primary) hypertension; K21.9 Gastro-esophageal reflux disease without esophagitis; Z79.899 Other long term (current) drug therapy; Z88.8 Allergy status to other drugs, medicaments and biological substances; F17.210 Nicotine dependence, cigarettes, uncomplicated

== ENCOUNTER → 2022-05-27 | Outpatient (CLI) | payer OTHER ==
[2022-05-27 09:00] LABS: BASO # 0.1 10^3/uL (0.0-0.2); BASO % 1.6 % (0.0-1.0); EOS # 0.1 10^3/uL (0.0-0.5); EOS % 2.1 % (0.0-3.0); HEMATOCRIT 37.7 % (36.0-47.0); HEMOGLOBIN 12.5 g/dl (12.0-15.5); LYMPH # 1.8 10^3/uL (1.5-5.0); LYMPH % 41.7 % (24.0-44.0); MEAN CORPUSCULAR HEMOGLOBIN 31.8 pg (27.0-33.0); MEAN CORPUSCULAR HGB CONC 33.2 g/dl (32.0-36.5); MEAN CORPUSCULAR VOLUME 95.9 fl (80.0-96.0); MONO # 0.3 10^3/uL (0.0-0.8); MONO % 6.2 % (2.0-8.0); NEUTROPHILS # 2.1 10^3/uL (1.5-8.5); NEUTROPHILS % 48.2 % (36.0-66.0); PLATELET COUNT, AUTOMATED 291 10^3/uL (150-450); RED BLOOD COUNT 3.93 10^6/uL (4.00-5.40); WHITE BLOOD COUNT 4.4 10^3/uL (4.0-10.0)
[2022-05-27 09:24] LABS: ALBUMIN 3.9 GM/DL (3.2-5.2); ALT/SGPT 22 U/L (12-78); BILIRUBIN,TOTAL 0.5 MG/DL (0.2-1.0); BLOOD UREA NITROGEN 18 MG/DL (7-18); CALCIUM LEVEL 9.1 MG/DL (8.8-10.2); CARBON DIOXIDE LEVEL 31 MEQ/L (21-32); CHLORIDE LEVEL 106 MEQ/L (98-107); CHOLESTEROL LEVEL 189 MG/DL (<200); CREATININE FOR GFR 0.61 MG/DL (0.55-1.30); GLOMERULAR FILTRATION RATE > 60.0 (>45); GLUCOSE, FASTING 91 MG/DL (70-100); HDL CHOLESTEROL 60 MG/DL (>40); LDL CHOLESTEROL 107 MG/DL (<100); NON-HDL-C 129 MG/DL; POTASSIUM SERUM 3.9 MEQ/L (3.5-5.1); SODIUM LEVEL 140 MEQ/L (136-145); TOTAL PROTEIN 7.1 GM/DL (6.4-8.2); TRIGLYCERIDES LEVEL 108 MG/DL (<150)
[2022-05-27 09:55] LABS: HEMOGLOBIN A1c 5.6 %
== END ==
LOC: M LAB 08:14
PROVIDERS: ATTEND Nurse Practitioner Family
DX: R73.01 Impaired fasting glucose (principal)

== ENCOUNTER → 2022-06-01 | Outpatient (REF) | payer OTHER | LOC: M LAB REF 17:09 | PROVIDERS: ATTEND Nurse Practitioner Family | DX: R31.9 Hematuria, unspecified (principal) ==

== ENCOUNTER → 2022-11-12 | Outpatient (CLI) | payer MEDICARE, OTHER | LOC: M RAD 13:15 | PROVIDERS: ATTEND Nurse Practitioner Family | DX: N83.292 Other ovarian cyst, left side (principal) ==

== ENCOUNTER 2023-04-13 09:22 | Emergency (ER) | payer MEDICARE, OTHER ==
[~2023-04-13] VITALS: Ht 162.6 cm; Wt 56.8 kg
[2023-04-13 09:23] VITALS: TEMP 98.7
[2023-04-13 15:24] VITALS: BP 158/88; O2SAT 98
== END 2023-04-13 15:29 | disposition home or self-care (01) ==
LOC: M ED 09:22
DX: S76.011A Strain of muscle, fascia and tendon of right hip, initial encounter (principal); W22.8XXA Striking against or struck by other objects, initial encounter; Y92.009 Unspecified place in unspecified non-institutional (private) residence as the place of occurrence of the external cause; Y93.K1 Activity, walking an animal; Y99.8 Other external cause status; M17.9 Osteoarthritis of knee, unspecified; I10 Essential (primary) hypertension; K21.9 Gastro-esophageal reflux disease without esophagitis; Z88.6 Allergy status to analgesic agent; Z79.899 Other long term (current) drug therapy

== ENCOUNTER → 2023-05-24 | Outpatient (CLI) | payer MEDICARE, OTHER | LOC: M PLALAB 10:40 | PROVIDERS: ATTEND Internal Medicine Endocrinology, Diabetes & Metabolism | DX: E55.9 Vitamin D deficiency, unspecified (principal) ==

== ENCOUNTER → 2023-06-03 | Outpatient (CLI) | payer MEDICARE, OTHER ==
[2023-06-03 09:21] LABS: CREATININE, URINE 44.8 MG/DL; MAU/CREAT RATIO 6.6 MCG/MG (0.0-30.0)
[2023-06-03 09:22] LABS: ALBUMIN 3.8 G/DL (3.2-5.2); ALKALINE PHOSPHATASE 50 U/L (46-116); ALT/SGPT 18 U/L (7.0-40); AST/SGOT 20 U/L (<34); BILIRUBIN,TOTAL 0.6 MG/DL (0.3-1.2); BLOOD UREA NITROGEN 20 MG/DL (9-23); CALCIUM LEVEL 8.8 MG/DL (8.3-10.6); CARBON DIOXIDE LEVEL 28 MMOL/L (20-31); CHLORIDE LEVEL 105 MMOL/L (98-107); CHOLESTEROL LEVEL 186 MG/DL (<200); CHOLESTEROL RISK RATIO 3.11 (<5); CREATININE FOR GFR 0.53 MG/DL (0.55-1.30); GLOMERULAR FILTRATION RATE > 60.0 (>45); GLUCOSE, FASTING 99 MG/DL (74-106); HDL CHOLESTEROL 59.8 MG/DL (>40); LDL CHOLESTEROL 114.8 MG/DL (<100); NON-HDL-C 126.2 MG/DL; POTASSIUM SERUM 3.9 MMOL/L (3.5-5.1); SODIUM LEVEL 141 MMOL/L (136-145); TOTAL PROTEIN 6.7 G/DL (5.7-8.2); TRIGLYCERIDES LEVEL 57 MG/DL (<150)
[2023-06-03 09:48] LABS: HEMOGLOBIN A1c 4.9 % (4.0-6.0)
== END ==
LOC: M LAB 07:56
PROVIDERS: ATTEND Nurse Practitioner Family
DX: I10 Essential (primary) hypertension (principal); R73.03 Prediabetes

== ENCOUNTER → 2024-05-22 | Outpatient (CLI) | payer MEDICARE, OTHER ==
[~2024-05-22] MED LIST changes: -DOXY20TA4; +DOXY20TA6; +ERYT1GEL5 TOP; -ERYTGEL TOP
[2024-05-22 08:41] LABS: HEMOGLOBIN A1c 5.3 % (4.0-6.0)
[2024-05-22 08:46] LABS: CREATININE, URINE 115.8 MG/DL; MALB URINE SIEMENS < 3.0 MG/L; MAU/CREAT RATIO 2.5 MCG/MG (0.0-30.0)
[2024-05-22 08:47] LABS: ALBUMIN 3.9 G/DL (3.2-5.2); ALKALINE PHOSPHATASE 58 U/L (46-116); ALT/SGPT 18 U/L (7.0-40); AST/SGOT 11 U/L (<34); BILIRUBIN,TOTAL 0.7 MG/DL (0.3-1.2); BLOOD UREA NITROGEN 19 MG/DL (9-23); CARBON DIOXIDE LEVEL 30 MMOL/L (20-31); CHLORIDE LEVEL 107 MMOL/L (98-107); CHOLESTEROL LEVEL 205 MG/DL (<200); CHOLESTEROL RISK RATIO 3.45 (<5); CREATININE FOR GFR 0.58 MG/DL (0.55-1.30); GLOMERULAR FILTRATION RATE > 60.0 (>45); GLUCOSE, FASTING 92 MG/DL (74-106); HDL CHOLESTEROL 59.4 MG/DL (>40); NON-HDL-C 145.6 MG/DL; SODIUM LEVEL 140 MMOL/L (136-145); TOTAL PROTEIN 6.8 G/DL (5.7-8.2); TRIGLYCERIDES LEVEL 78 MG/DL (<150)
== END ==
LOC: M LAB 07:47
PROVIDERS: ATTEND Nurse Practitioner Family
DX: I10 Essential (primary) hypertension (principal); R73.03 Prediabetes

== ENCOUNTER 2024-10-14 09:25 | Emergency (ER) | payer MEDICARE, OTHER ==
[~2024-10-14] VITALS: Ht 162.6 cm; Wt 58.0 kg
[2024-10-14] MEDS ORDERED: nyquil (09:40)
[2024-10-14] MEDS ORDERED: MUCI1TAB16 PO (09:40)
[2024-10-14] MEDS ORDERED: PRED20TA (09:40)
[2024-10-14] MEDS ORDERED: BENZ200C70 (09:40)
[2024-10-14] MEDS ORDERED: DOXY20TA6 (09:40)
[2024-10-14] MEDS ORDERED: OMEP-173 (09:40)
[2024-10-14] MEDS ORDERED: ALBU8.5H INH (12:17)
[2024-10-14 12:42] VITALS: BP 126/79; TEMP 97.8; O2SAT 95
== END 2024-10-14 12:46 | disposition home or self-care (01) ==
LOC: M ED 09:25
DX: R05.9 Cough, unspecified (principal); B97.4 Respiratory syncytial virus as the cause of diseases classified elsewhere; K21.9 Gastro-esophageal reflux disease without esophagitis; I10 Essential (primary) hypertension; Z88.8 Allergy status to other drugs, medicaments and biological substances; Z79.51 Long term (current) use of inhaled steroids; Z79.52 Long term (current) use of systemic steroids; Z79.810 Long term (current) use of selective estrogen receptor modulators (SERMs); Z79.899 Other long term (current) drug therapy

== ENCOUNTER 2024-10-21 18:01 | Emergency (ER) | payer MEDICARE, OTHER ==
[~2024-10-21] VITALS: Ht 162.6 cm; Wt 57.9 kg
[~2024-10-21 18:01] MED LIST changes: +ALBU8.5H INH; +BENZ200C70; +MUCI1TAB16 PO; +PRED20TA; +nyquil
[2024-10-21 18:05] VITALS: BP 159/72; TEMP 98.3; O2SAT 97
== END 2024-10-21 20:31 | disposition home or self-care (01) ==
LOC: M ED 18:01
DX: J20.9 Acute bronchitis, unspecified (principal); R09.81 Nasal congestion; Z88.6 Allergy status to analgesic agent; Z88.8 Allergy status to other drugs, medicaments and biological substances; Z79.52 Long term (current) use of systemic steroids; Z79.899 Other long term (current) drug therapy

== ENCOUNTER 2024-11-10 19:03 | Emergency (ER) | payer MEDICARE, OTHER ==
[~2024-11-10] VITALS: Ht 162.6 cm; Wt 57.6 kg
[2024-11-10 19:07] VITALS: TEMP 98.7
[2024-11-10 22:15] VITALS: BP 158/86; O2SAT 97
[2024-11-10] MEDS ORDERED: NAPHSOL OP (22:20)
== END 2024-11-10 22:31 | disposition home or self-care (01) ==
LOC: M ED 19:03
DX: H57.89 Other specified disorders of eye and adnexa (principal); I10 Essential (primary) hypertension; K21.9 Gastro-esophageal reflux disease without esophagitis; Z88.6 Allergy status to analgesic agent; Z88.8 Allergy status to other drugs, medicaments and biological substances; Z79.51 Long term (current) use of inhaled steroids; Z79.899 Other long term (current) drug therapy; Z79.810 Long term (current) use of selective estrogen receptor modulators (SERMs)

== ENCOUNTER 2024-11-24 19:33 | Emergency (ER) | payer MEDICARE, OTHER ==
[~2024-11-24] VITALS: Ht 162.6 cm; Wt 57.7 kg
[~2024-11-24 19:33] MED LIST changes: +NAPHSOL OP
[2024-11-24 19:44] VITALS: BP 132/62; TEMP 98; O2SAT 98
[2024-11-24] MEDS: FLUORESCEIN OPHTH 1MG STRIP OD ONE (20:25)
[2024-11-24] MEDS: PROPARACAINE 0.5% OPHTH SOL 15ML OD ONE (20:25)
== END 2024-11-24 20:41 | disposition home or self-care (01) ==
LOC: M ED 19:33
DX: H11.31 Conjunctival hemorrhage, right eye (principal); Z88.6 Allergy status to analgesic agent; Z88.8 Allergy status to other drugs, medicaments and biological substances; Z79.51 Long term (current) use of inhaled steroids; Z79.810 Long term (current) use of selective estrogen receptor modulators (SERMs); Z79.899 Other long term (current) drug therapy

== ENCOUNTER → 2025-05-28 | Outpatient (CLI) | payer MEDICARE, OTHER ==
[2025-05-28 11:20] LABS: BASO # 0.1 10^3/uL (0.0-0.2); BASO % 1.5 % (0.0-1.0); EOS # 0.1 10^3/uL (0.0-0.5); EOS % 1.7 % (0.0-3.0); LYMPH # 2.0 10^3/uL (1.5-5.0); LYMPH % 43.5 % (24.0-44.0); MONO # 0.4 10^3/uL (0.0-0.8); MONO % 8.4 % (2.0-8.0); NEUTROPHILS # 2.1 10^3/uL (1.5-8.5); NEUTROPHILS % 44.7 % (36.0-66.0); PLATELET COUNT, AUTOMATED 294 10^3/uL (150-450)
[2025-05-28 11:33] LABS: ESTIMATED AVERAGE GLUCOSE 120.0 MG/DL (60-110)
[2025-05-28 11:41] LABS: ALT/SGPT 18 U/L (7.0-40); AST/SGOT 15 U/L (<34); CALCIUM LEVEL 9.1 MG/DL (8.3-10.6); CARBON DIOXIDE LEVEL 30 MMOL/L (20-31); CHLORIDE LEVEL 104 MMOL/L (98-107); CHOLESTEROL LEVEL 232 MG/DL (<200); CHOLESTEROL RISK RATIO 4.00 (<5); CREATININE FOR GFR 0.54 MG/DL (0.55-1.30); GLOMERULAR FILTRATION RATE > 90.0 (>45); LDL CHOLESTEROL 156.3 MG/DL (<100); NON-HDL-C 174.1 MG/DL; POTASSIUM SERUM 3.7 MMOL/L (3.5-5.1); SODIUM LEVEL 142 MMOL/L (136-145); TRIGLYCERIDES LEVEL 89 MG/DL (<150)
== END ==
LOC: M LAB 08:41
PROVIDERS: ATTEND Nurse Practitioner Family
DX: I10 Essential (primary) hypertension (principal); R73.03 Prediabetes